=== PATIENT | male | born 1940 | race African-American/Black ===

== ENCOUNTER 2020-11-27 13:44 | Inpatient (IN) | payer MEDICARE, OTHER ==
[2020-11-27] VITALS (12 sets, daily range): BP systolic 73–116; BP diastolic 47–73
[~2020-11-27] VITALS: Ht 167.6 cm; Wt 73.2 kg
[~2020-11-27 13:44] MED LIST: ALBU2.5V8 NEB; AMIO200T6 PO; AMLO-187 PO; APIX5TAB PO; ATOR40TA59 PO; CARV25TA2 PO; CHOL100017 PO; CYAN-9 PO; DOCU100C28 PO; FERR325T14 PO; FURO40TA4 PO; HYDR-2761 PO; HYDR-2869 PO; ISOS40TA11 PO; LISI-130 PO; POTA20TA4 PO; TAMS0.4C97 PO
[2020-11-27] MEDS: MILRINONE 20MG/100ML PREMIX 100 ML IV PRN (16:37)
[2020-11-27] MEDS ORDERED: ALBUTEROL SULFATE 2.5 MG/3 ML NEBU. NEB PRN (17:45)
[2020-11-27] MEDS ORDERED: DOCUSATE SODIUM 100 MG CAPSULE. PO PRN (17:45)
[2020-11-27] MEDS ORDERED: HYDROcodone/APAP 5/325MG 1 TAB TABLET PO PRN (17:45)
[2020-11-27] MEDS ORDERED: FURO40SO5 PO (17:58)
[2020-11-27] MEDS ORDERED: CARV25TA PO (17:58)
[2020-11-27] MEDS ORDERED: ASCO500C9 PO (18:01)
[2020-11-27] MEDS ORDERED: ASPI81TA59 PO (18:02)
[2020-11-27] MEDS: CARVEDILOL 3.125 MG TABLET. PO SCH (18:30)
[2020-11-27] MEDS: ISOSORBIDE DINITRATE 10 MG TABLET. PO SCH (20:52)
--- NOTE | 2020-11-27 21:52 | NUR ---
Notified Dr. Fuchs low BP, 72/54 HR 102. Per Jef Rodriguez hold Milrinone for 1-2 hours if pt is systolic BP <70 or becomes symptomatic. Will continue to monitor patient.
[2020-11-28] VITALS (22 sets, daily range): BP systolic 100–119; BP diastolic 47–63
[2020-11-28 07:50] LABS: BASO % 0 % (0-3); EOS % 1 % (0-3); HEMATOCRIT 27.9 % (39.0-53.0); HEMOGLOBIN 9.1 g/dL (13.0-17.5); LYMPH # 0.2 x10^3/uL (1.0-4.8); LYMPH % 8 % (24-48); MEAN CORPUSCULAR HEMOGLOBIN 31 pg (25-35); MEAN CORPUSCULAR HGB CONC 33 g/dL (31-37); MEAN CORPUSCULAR VOLUME 95 fL (79-100); MONO # 0.3 x10^3/uL (0.0-1.1); MONO % 9 % (0-9); NEUT # 2.4 x10^3/uL (1.8-7.7); NEUT % 82 % (31-73); PLATELET COUNT 118 x10^3/uL (140-400); RED BLOOD COUNT 2.93 x10^6/uL (4.30-5.70); RED CELL DISTRIBUTION WIDTH 17.9 % (11.5-14.5)
[2020-11-28] MEDS: CARVEDILOL 3.125 MG TABLET. PO SCH ×2 (08:00→18:13)
[2020-11-28 08:22] LABS: ALBUMIN 2.2 g/dL (3.4-5.0); ALBUMIN/GLOBULIN RATIO 0.8 (1.0-1.7); CALCIUM 8.2 mg/dL (8.5-10.1); CREATININE 3.7 mg/dL (0.7-1.3); GFR 19.3; POTASSIUM 4.6 mmol/L (3.5-5.1); TOTAL BILIRUBIN 0.5 mg/dL (0.2-1.0); TOTAL PROTEIN 4.9 g/dL (6.4-8.2)
[2020-11-28] MEDS ORDERED: FUROSEMIDE 100 MG/10 ML VIAL. IVP SCH (09:00)
[2020-11-28] MEDS: ISOSORBIDE DINITRATE 10 MG TABLET. PO SCH ×2 (09:00→13:21)
[2020-11-28 10:02] LABS: % BANDS 1 % (0-9); % EOS 2 % (0-5); % LYMPHS 11 % (24-48); % MONOS 1 % (0-10); % SEGS 85 % (35-66)
[2020-11-28 10:04] LABS: HELMET CELLS OCC; PLT ESTIMATE ADEQUATE (ADEQUATE); POIKILOCYTOSIS PRESENT
[2020-11-28 10:05] LABS: BIZZARE CELLS OCC
[2020-11-28 10:32] LABS: BURR CELLS PRESENT
--- NOTE | 2020-11-28 11:14 | PDOC ---
LYNDSAY ZHAO INSURANCE ADVISER 11/28/20 1114: CARDIO Progress Notes Date and Time Date of Service 11/28/20 Time of Evaluation 1100 Subjective Subjective: No Chest Pain, No Palpitations, Other (breathing improved ) Vitals Vitals Vital Signs Date Time Temp Pulse Resp B/P (MAP) Pulse Ox O2 Delivery O2 Flow Rate FiO2 11/28/20 08:00 Nasal Cannula 2.0 11/28/20 07:00 98.0 56 16 116/61 (79) 100 98.0 Weight Weight [ ] Input and Output Intake and Output Intake and Output 11/28/20 07:00 Intake Total 360 ml Output Total 1100 ml Balance -740 ml Intake Oral 360 ml Output Urine Total 1100 ml Laboratory Labs Laboratory Tests Test 11/28/20 06:50 11/28/20 06:56 White Blood Count 3.0 x10^3/uL (4.0-11.0) Red Blood Count 2.93 x10^6/uL (4.30-5.70) Hemoglobin 9.1 g/dL (13.0-17.5) Hematocrit 27.9 % (39.0-53.0) Mean Corpuscular Volume 95 fL (79-100) Mean Corpuscular Hemoglobin 31 pg (25-35) Mean Corpuscular Hemoglobin Concent 33 g/dL (31-37) Red Cell Distribution Width 17.9 % (11.5-14.5) Platelet Count 118 x10^3/uL (140-400) Neutrophils (%) (Auto) 82 % (31-73) Lymphocytes (%) (Auto) 8 % (24-48) Monocytes (%) (Auto) 9 % (0-9) Eosinophils (%) (Auto) 1 % (0-3) Basophils (%) (Auto) 0 % (0-3) Neutrophils # (Auto) 2.4 x10^3/uL (1.8-7.7) Lymphocytes # (Auto) 0.2 x10^3/uL (1.0-4.8) Monocytes # (Auto) 0.3 x10^3/uL (0.0-1.1) Eosinophils # (Auto) 0.0 x10^3/uL (0.0-0.7) Basophils # (Auto) 0.0 x10^3/uL (0.0-0.2) Segmented Neutrophils % 85 % (35-66) Band Neutrophils % 1 % (0-9) Lymphocytes % 11 % (24-48) Monocytes % 1 % (0-10) Eosinophils % 2 % (0-5) Platelet Estimate Adequate (ADEQUATE) Poikilocytosis Present Basophilic Stippling Present Helmet Cells Occ Mounika Cells Present RBC Morphology Bizarre Forms Occ Magnesium Level 2.2 mg/dL (1.8-2.4) Free Thyroxine 1.11 ng/dL (0.76-1.46) Sodium Level 149 mmol/L (136-145) Potassium Level 4.6 mmol/L (3.5-5.1) Chloride Level 116 mmol/L (98-107) Carbon Dioxide Level 24 mmol/L (21-32) Anion Gap 9 (6-14) Blood Urea Nitrogen 59 mg/dL (8-26) Creatinine 3.7 mg/dL (0.7-1.3) Estimated GFR (Cockcroft-Gault) 19.3 BUN/Creatinine Ratio 16 (6-20) Glucose Level 86 mg/dL (70-99) Calcium Level 8.2 mg/dL (8.5-10.1) Total Bilirubin 0.5 mg/dL (0.2-1.0) Aspartate Amino Transf (AST/SGOT) 21 U/L (15-37) Alanine Aminotransferase (ALT/SGPT) 29 U/L (16-63) Alkaline Phosphatase 123 U/L (46-116) Total Protein 4.9 g/dL (6.4-8.2) Albumin 2.2 g/dL (3.4-5.0) Albumin/Globulin Ratio 0.8 (1.0-1.7) Physical Exam Chest: Symmetric LUNGS: Other (diminished bases) Heart: RRR (v-paced ) Abdomen: Soft N/T Extremities: Other (anasarca, 2-3+ bilateral LE edema. Significant scrotal edema ) Neurology: alert, oriented, follow commands Assessment Assessment This is a 80 yo male who initially presented to [facility] secondary to increased LE, scrotal edema and hematuria. Is a resident of [place]. Report LE and scrotal edema for the last couple of months. Has progressively worsened. Associated with dyspnea. Dailey was placed for 24hour collection. Had difficulty placing and hematuria developed. He denies and dizziness, diaphoresis, chest pain, or nausea/vomiting. Has extensive cardiac history as noted below. [facility] not see communication consultant. Labs at [facility] c/w JOSE on CKD with Cr 3.6, acute on chronic systolic CHF, and protein calorie malnutrition. Received 100mg BID of Lasix at [facility]. Was transferred to [facility] for nephrology consultation and fur ther HF evaluation Assessment 1. Acute on chronic respiratory failure; multifactorial with renal failure, CHG, and hypoalbuminemia 2. Acute on chronic diastolic/systolic CHF; s/p IV diuresis. 2. Mixed ischemic, non-ischemic CMP; Echo 11/03 with LVEF 25%. On milrinone 3. CAD s/p PCI/REJI to OM1 (04/2014). clinically stable 4. Type B aortic dissection; s/p transcatheter endovascular aneurysm repair 11/24/19 at [facility] 5. PAFIB; On Amiodarone. 6. SSS s/p leadless PPM; 100% v-paced with underlying AFIB. Not was bradycardia in upper 40's at [facility] 7. Hypertension; low end 8. Hyperlipidemia; statin 9. JOSE on CKD, hyperkalemia; Cr ^ 3.7. Plans for initiation of HD 10. Diabetes, II 11. Leukopenia 12. Hypothyroidism 13. BPH s/p dailey. Hematuria resolved 14. Protein calorie malnutrition, anasarca, significant scrotal edema Recommendations Continue inotropic support with milrinone Monitor I and O. Daily weights Continue coreg for HF optimization Hold ACEi with JOSE Secondary prevention; ASA/statin therapy Device interrogation Resume Eliquis post HD cath placement Follow renal recommendations Supportive care Justicifation of Admission Dx: Justifications for Admission: Justification of Admission Dx: Yes HERVE MARSH MD 11/28/20 1557: CARDIO Progress Notes Plan Plan Patient seen and examined. Agree with above nurse practitioner note. He has persistent 4+ pitting edema up to his thighs. Agree with dialysis. Supportive care. LYNDSAY ZHAO APRN Nov 28, 2020 11:14 HERVE MARSH MD Nov 28, 2020 15:57
--- NOTE | 2020-11-28 11:22 | HP ---
ADMIT DATE: 11/28/2020 HISTORY OF PRESENT ILLNESS: The patient is a 80-year-old -[place] male patient who was at [facility] after he was discharged from [facility] and apparently had marked bilateral lower extremity edema that has worsening as well as scrotal edema and generalized anasarca. He is known to have chronic systolic congestive heart failure as well as chronic kidney disease, likely due to hypertensive nephrosclerosis as well as cardiorenal syndrome. He has also hypoalbuminemia. His chest x-ray was unremarkable. He is actually maintaining his oxygen saturation at 95-96% on room air and while at [facility] we attempted to put a Miguel catheter and to do a 24-hour urine collection to quantify the amount of proteinuria as he likely has severe nephrotic syndrome; however, he developed severe gross hematuria and therefore he was transferred with a plan to send him to [facility]; however, he ended up at the Emergency Room of [facility] where he has had an indwelling Miguel catheter placed and was admitted for further evaluation. While at [facility] his kidney function has noted to be worsening. In fact, his creatinine has risen up to 3.6 and he was seen in consultation by the application integrator and therefore a decision was made to transfer him to [facility] to consult the application integrator and the extension service specialist in charge to do 24-hour urine collection and to start him on milrinone drip as he is known to have chronic systolic congestive heart failure with very poor ejection fraction. PAST MEDICAL HISTORY: Significant for hypertension, hyperlipidemia, chronic atrial fibrillation, congestive heart failure. He has a history of chronic renal disease as well as history of non-ST segment elevation myocardial infarction. He apparently had had a stent placed in his heart and had that done in 2013. At that time ejection fraction was 40%. He has had an echocardiogram done on 11/11, which showed that his systolic function is severely impaired, his ejection fraction was only 25%. Tissue Doppler imaging revealed moderate left ventricular diastolic dysfunction, he has moderate biatrial dilatation, mild aortic regurgitation, moderate mitral regurgitation, [id number] tricuspid regurgitation and estimated pulmonary artery pressure of 64 mmHg. There is a small circumferential pericardial effusion. PAST SURGICAL HISTORY: Significant for bilateral cataract extraction, PTCA and stent deployment and has also a descending thoracic aortic dissection which was treated. Other medical problems include type 2 diabetes mellitus and chronic obstructive pulmonary disease. The patient continues to smoke. FAMILY HISTORY: The patient has 6-step brothers. His father at the age of 68 because of emphysema. His mother at the age of 50 due to congestive heart failure. SOCIAL HISTORY: He is , has 8 children from different marriages. He continues to smoke, he used to drink alcohol heavily, but quit years ago. He also smokes marijuana. He is currently retired from the . He just moved recently from [facility] and lives at [facility] before his most recent admission to [facility]. ALLERGIES: He has no known drug allergies. MEDICATIONS: He was transferred from [facility] to continue on albuterol sulfate 2.5 mg by nebulizer every 4 hours, tamsulosin 0.8 mg at bedtime, ferrous sulfate 325 mg once a day, apixaban 5 mg twice a day, amiodarone 200 mg daily, atorvastatin calcium 40 mg at bedtime, hydralazine 100 mg 3 times a day, isosorbide dinitrate 20 mg twice a day, carvedilol 3.125 mg twice a day, amlodipine besylate 10 mg daily. He was on lisinopril 40 mg daily and aspirin 81 mg once a day. He was on hydrocodone/APAP 5/325 one tablet every 4 hours as needed and potassium chloride 20 mEq once a day, furosemide 40 mg daily, Colace 100 mg once a day, cyanocobalamin 1000 mcg once a day and vitamin C for ascorbic acid 500 mg daily, cholecalciferol for vitamin D3 at 10,000 units once a day. REVIEW OF SYSTEMS: As per history of present illness. PHYSICAL EXAMINATION GENERAL: When I saw him this morning, he was resting slightly propped up in bed, in no apparent distress. Pale, no jaundice, cyanosis or thyromegaly. No jugular venous distention or limb edema. VITAL SIGNS: His heart rate was 56, blood pressure was 116/61, temperature was 98, respiratory rate was 16, and oxygen saturation was 100% on 2 liters of oxygen. HEAD, EYES, EARS, NOSE AND THROAT: Showed normocephalic, atraumatic. NECK: Supple. HEART: Showed normal first and second heart sounds. No gallop, rub or murmur. CHEST: Shows central trachea, equal bilateral expansion, air entry, vesicular sounds. No crepitation or rhonchi. ABDOMEN: Distended, soft, nontender. NEUROLOGIC: He was sleepy, but arousable. All cranial nerves intact. EXTREMITIES: He moves extremities without difficulty. His intake was 360, output was 1100. LABORATORY DATA: As of this morning, his white cell count was 3000, hemoglobin 9, hematocrit 27, MCV 95, and platelet count of 118,000. His serum sodium was 149, potassium 4.6, chloride 116, bicarbonate 24, anion gap of 9, BUN 59, creatinine 3.7, estimated GFR was 19 mL per minute. His glucose was 86, calcium was 8.2, magnesium 2.2. Total bilirubin, AST, ALT were normal. Alkaline phosphatase slightly elevated. Total protein was 4.9, albumin was 2.2. His TSH was high at 8.8; however his free T4 was 1.11, which is well within normal range. ASSESSMENT AND PLAN: In summary, this is a 80-year-old -[place] male patient who was transferred from [facility] with: 1. Acute on chronic kidney injury. His creatinine has risen up to 3.7. 2. Acute on chronic systolic congestive heart failure, ejection fraction 25%. 3. Chronic atrial fibrillation. 4. Coronary artery disease, status post PCI with stent deployment. 5. Hypertension. 6. Hyperlipidemia. 7. Chronic obstructive pulmonary disease. 8. Anemia of chronic kidney disease. 9. Benign prostatic hypertrophy. 10. Type 2 diabetes mellitus. 11. He has also marked generalized anasarca on hypoalbuminemia. Serum albumin is only 2.2 g/dL for which we arranged for him to have a 24-hour urine collection to quantify the amount of protein in the urine and also a creatinine clearance, I have consulted the extension service specialist in charge as well as the application integrator. He was started on a milrinone drip. I did order also Doppler ultrasound of both lower extremities and scrotal ultrasound. MYNOR CHOW MD DR: TOMY/edil JOB#: [id number] / [id number]
--- NOTE | 2020-11-28 11:26 | NUR ---
SS following for discharge planning. SS reviewed pt chart and discussed with pt RN. Pt is from home and is currently requiring oxygen via nasal canula at two liters. Milrinone drip. Per RN, pt will need hemodialysis set up outpatient. Pt to start dialysis tomorrow. Tunneled cath ordered. COVID19 test ordered. Serology labs ordered. Chest x-ray ordered. SS will continue to follow for discharge planning.
--- NOTE | 2020-11-28 11:27 | PDOC2 ---
CONSULT Date of Consult Date of Consult DATE: 11/28/20 TIME: 11:22 Reason for Consult Reason for Consult: RENAL FAILURE Referring Physician Referring Physician: CLAUDINE Identification/Chief Complaint Chief Complaint SOB Source Source: Chart review, Patient History of Present Illness Reason for Visit: THIS IS A 80 YR OLD WITH SOB AND LE EDEMA. HAS CHF. HAS CM WITH EF OF 25%. HAS UNDERLYING CKD WHICH HAS BEEN PROGRESSIVE DUE TO HTN AND DM II AND LATELY DUE TO CARDIO RENAL ISSUES. CR OF 3.7. HE ALSO HAS ANEMIA AND PANCYTOPENIA. NEEDING SUPPLEMENTAL OXYGEN. THIS IS A REPEAT VISIT FOR SIMILAR PROBLEMS. NO OTHER HX. NO NEPHROTOXINS NOTED. Past Medical History Cardiovascular: CAD, CHF, HTN, Hyperlipidemia Pulmonary: COPD GI: Constipation Heme/Onc: Anemia NOS Renal/: Chronic renal insuff Endocrine: Diabetes Past Surgical History Past Surgical History: Other Family History Family History: Hypertension Social History No ALCOHOL: other Drugs: None, Marijuana Lives: Alone Current Medications Current Medications Current Medications Milrinone Lactate/ Dextrose 100 ml @ 2.959 mls/ hr CONT PRN IV SEE I/O RECORD Last administered on 11/27/20at 16:37; Start 11/27/20 at 15:45 Albuterol Sulfate (Ventolin Neb Soln) 2.5 mg PRN Q4HRS PRN NEB SHORTNESS OF BREATH; Start 11/27/20 at 17:45 Atorvastatin Calcium (Lipitor) 40 mg DAILY PO ; Start 11/28/20 at 09:00 Docusate Sodium (Colace) 100 mg PRN BID PRN PO CONSTIPATION; Start 11/27/20 at 17:45 Acetaminophen/ Hydrocodone Bitart (Lortab 5/325) 1 tab PRN Q4HRS PRN PO SEVERE PAIN; Start 11/27/20 at 17:45 Tamsulosin HCl (Flomax) 0.8 mg DAILY PO ; Start 11/28/20 at 09:00 Isosorbide Dinitrate (Isordil) 20 mg BID PO Last administered on 11/27/20at 20:52; Start 11/27/20 at 21:00 Aspirin (Aspirin Chewable) 81 mg DAILY PO ; Start 11/28/20 at 09:00 Carvedilol (Coreg) 3.125 mg BIDWMEALS PO ; Start 11/27/20 at 18:30 Furosemide (Lasix) 100 mg DAILY IVP ; Start 11/28/20 at 09:00; Stop 11/28/20 at 10:26; Status DC Active Scripts Active Hydrocodone-Apap 5-325 (Hydrocodone Bit/Acetaminophen) 1 Tab Tablet 1 Tab PO PRN Q4HRS PRN Amlodipine Besylate 10 Mg Tablet 10 Mg PO DAILY Proair Hfa (Albuterol Sulfate) 8.5 Gm Hfa.aer.ad 2.5 Mg NEB PRN Q4HRS PRN 30 Days Reported Children's Aspirin (Aspirin) 81 Mg Tab.chew 1 Tab PO DAILY 30 Days Vitamin C (Ascorbic Acid) 500 Mg Capsule 500 Mg PO DAILY Furosemide 40 Mg/4 Ml Solution 100 Mg PO DAILY Coreg (Carvedilol) 25 Mg Tablet 3.125 Mg PO BIDWMEALS Amiodarone Hcl 200 Mg Tablet 1 Tab PO DAILY Docusate Sodium 100 Mg Capsule 1 Cap PO BID PRN 7 Days Ferrous Sulfate 325 Mg Tablet 1 Tab PO DAILY Vitamin D (Cholecalciferol (Vitamin D3)) 10,000 Unit Capsule 1 Cap PO DAILY 30 Days Vitamin B-12 (Cyanocobalamin (Vitamin B-12)) 1,000 Mcg Capsule 1 Cap PO DAILY 30 Days Flomax (Tamsulosin Hcl) 0.4 Mg Cap.er.24h 2 Cap PO DAILY Potassium Chloride (Potassium Chloride) 20 Meq Tablet.er 20 Meq PO DAILY Eliquis (Apixaban) 5 Mg Tablet 5 Mg PO BID Atorvastatin Calcium 40 Mg Tablet 1 Tab PO DAILY Isordil (Isosorbide Dinitrate) 40 Mg Tablet 20 Mg PO BID Hydralazine Hcl 50 Mg Tablet 2 Tab PO TID Furosemide 40 Mg Tablet 1 Tab PO DAILY Lisinopril 40 Mg Tablet 1 Tab PO DAILY Allergies Allergies: Coded Allergies: No Known Drug Allergies (Unverified , 11/11/19) ROS General: YES: Fatigue, Malaise PSYCHOLOGICAL ROS: YES: Anxiety Eyes: Yes Decreased vision HEENT: YES: Heacaches Respiratory: YES: Orthopnea, Shortness of breath Cardiovascular: yes Edema Gastrointestinal: Yes Constipation Genitourinary: YES Frequency Musculoskeletal: Yes Muscular Weakness Neurological: Yes Weakness Skin: Yes Dry Skin Physical Exam General: Alert, Oriented X3, Cooperative, mild distress HEENT: Atraumatic, EOMI, Mucous membr. moist/pink Lungs: Other (DECREASED AT BASES) Heart: Regular rate Abdomen: Normal bowel sounds Extremities: No clubbing, No cyanosis Skin: No breakdown Neuro: Normal speech, Cranial nerves 3-12 NL Psych/Mental Status: Mental status NL, Mood NL MUSCULOSKELETAL: No joint tenderness, No deformity, Other (3 EDEMA) Vitals VITALS Vital Signs Date Time Temp Pulse Resp B/P (MAP) Pulse Ox O2 Delivery O2 Flow Rate FiO2 11/28/20 08:00 Nasal Cannula 2.0 11/28/20 07:00 98.0 56 16 116/61 (79) 100 98.0 Labs Labs Laboratory Tests Test 11/28/20 06:50 11/28/20 06:56 White Blood Count 3.0 x10^3/uL (4.0-11.0) Red Blood Count 2.93 x10^6/uL (4.30-5.70) Hemoglobin 9.1 g/dL (13.0-17.5) Hematocrit 27.9 % (39.0-53.0) Mean Corpuscular Volume 95 fL (79-100) Mean Corpuscular Hemoglobin 31 pg (25-35) Mean Corpuscular Hemoglobin Concent 33 g/dL (31-37) Red Cell Distribution Width 17.9 % (11.5-14.5) Platelet Count 118 x10^3/uL (140-400) Neutrophils (%) (Auto) 82 % (31-73) Lymphocytes (%) (Auto) 8 % (24-48) Monocytes (%) (Auto) 9 % (0-9) Eosinophils (%) (Auto) 1 % (0-3) Basophils (%) (Auto) 0 % (0-3) Neutrophils # (Auto) 2.4 x10^3/uL (1.8-7.7) Lymphocytes # (Auto) 0.2 x10^3/uL (1.0-4.8) Monocytes # (Auto) 0.3 x10^3/uL (0.0-1.1) Eosinophils # (Auto) 0.0 x10^3/uL (0.0-0.7) Basophils # (Auto) 0.0 x10^3/uL (0.0-0.2) Segmented Neutrophils % 85 % (35-66) Band Neutrophils % 1 % (0-9) Lymphocytes % 11 % (24-48) Monocytes % 1 % (0-10) Eosinophils % 2 % (0-5) Platelet Estimate Adequate (ADEQUATE) Poikilocytosis Present Basophilic Stippling Present Helmet Cells Occ Mounika Cells Present RBC Morphology Bizarre Forms Occ Magnesium Level 2.2 mg/dL (1.8-2.4) Free Thyroxine 1.11 ng/dL (0.76-1.46) Sodium Level 149 mmol/L (136-145) Potassium Level 4.6 mmol/L (3.5-5.1) Chloride Level 116 mmol/L (98-107) Carbon Dioxide Level 24 mmol/L (21-32) Anion Gap 9 (6-14) Blood Urea Nitrogen 59 mg/dL (8-26) Creatinine 3.7 mg/dL (0.7-1.3) Estimated GFR (Cockcroft-Gault) 19.3 BUN/Creatinine Ratio 16 (6-20) Glucose Level 86 mg/dL (70-99) Calcium Level 8.2 mg/dL (8.5-10.1) Total Bilirubin 0.5 mg/dL (0.2-1.0) Aspartate Amino Transf (AST/SGOT) 21 U/L (15-37) Alanine Aminotransferase (ALT/SGPT) 29 U/L (16-63) Alkaline Phosphatase 123 U/L (46-116) Total Protein 4.9 g/dL (6.4-8.2) Albumin 2.2 g/dL (3.4-5.0) Albumin/Globulin Ratio 0.8 (1.0-1.7) Laboratory Tests Test 11/28/20 06:50 11/28/20 06:56 White Blood Count 3.0 x10^3/uL (4.0-11.0) Red Blood Count 2.93 x10^6/uL (4.30-5.70) Hemoglobin 9.1 g/dL (13.0-17.5) Hematocrit 27.9 % (39.0-53.0) Mean Corpuscular Volume 95 fL (79-100) Mean Corpuscular Hemoglobin 31 pg (25-35) Mean Corpuscular Hemoglobin Concent 33 g/dL (31-37) Red Cell Distribution Width 17.9 % (11.5-14.5) Platelet Count 118 x10^3/uL (140-400) Neutrophils (%) (Auto) 82 % (31-73) Lymphocytes (%) (Auto) 8 % (24-48) Monocytes (%) (Auto) 9 % (0-9) Eosinophils (%) (Auto) 1 % (0-3) Basophils (%) (Auto) 0 % (0-3) Neutrophils # (Auto) 2.4 x10^3/uL (1.8-7.7) Lymphocytes # (Auto) 0.2 x10^3/uL (1.0-4.8) Monocytes # (Auto) 0.3 x10^3/uL (0.0-1.1) Eosinophils # (Auto) 0.0 x10^3/uL (0.0-0.7) Basophils # (Auto) 0.0 x10^3/uL (0.0-0.2) Segmented Neutrophils % 85 % (35-66) Band Neutrophils % 1 % (0-9) Lymphocytes % 11 % (24-48) Monocytes % 1 % (0-10) Eosinophils % 2 % (0-5) Platelet Estimate Adequate (ADEQUATE) Poikilocytosis Present Basophilic Stippling Present Helmet Cells Occ [place] Cells Present RBC Morphology Bizarre Forms Occ Magnesium Level 2.2 mg/dL (1.8-2.4) Free Thyroxine 1.11 ng/dL (0.76-1.46) Sodium Level 149 mmol/L (136-145) Potassium Level 4.6 mmol/L (3.5-5.1) Chloride Level 116 mmol/L (98-107) Carbon Dioxide Level 24 mmol/L (21-32) Anion Gap 9 (6-14) Blood Urea Nitrogen 59 mg/dL (8-26) Creatinine 3.7 mg/dL (0.7-1.3) Estimated GFR (Cockcroft-Gault) 19.3 BUN/Creatinine Ratio 16 (6-20) Glucose Level 86 mg/dL (70-99) Calcium Level 8.2 mg/dL (8.5-10.1) Total Bilirubin 0.5 mg/dL (0.2-1.0) Aspartate Amino Transf (AST/SGOT) 21 U/L (15-37) Alanine Aminotransferase (ALT/SGPT) 29 U/L (16-63) Alkaline Phosphatase 123 U/L (46-116) Total Protein 4.9 g/dL (6.4-8.2) Albumin 2.2 g/dL (3.4-5.0) Albumin/Globulin Ratio 0.8 (1.0-1.7) Assessment/Plan Assessment/Plan IMP JOSE VS NEW ESRD CKD STAGE 4 WITH CR OF 2.9 RECENTLY CHF SYSTOLIC WITH CM AND EF OF 25% VALVULAR HEART DISEASE DYSPNEA DM II HTN ANEMIA PANCYTOPENIA PLAN MILRINONE DIURESIS TOLERATED NEEDS TO START DIALYSIS WILL HAVE IR PLACE TUNNELED LINE HD TO START TOMORROW CHECK PO4, IRON START ARANESP PT AGREEABLE D/W BECKA DOZIER MD Nov 28, 2020 11:27
[2020-11-28] MEDS: ASPIRIN CHEWABLE 81 MG TABLET. PO SCH (13:44)
[2020-11-28] MEDS: TAMSULOSIN 0.4 MG CAP.ER.24H. PO SCH (13:45)
[2020-11-28] MEDS: ATORVASTATIN CALCIUM 40 MG TABLET. PO SCH (13:45)
--- NOTE | 2020-11-28 16:34 | RAD ---
US BILATERAL LOWEREXTREMITY VENOUS DOPPLER History: Reason: EDEMA / Spl. Instructions: / History: Comparison: None. Discussion: Multiple longitudinal and transverse high resolution real-time images of the venous system of bilater al lower extremity were obtained with color and Doppler sampling. The common femoral, superficial fem oral, popliteal and proximal calf veins are all patent and demonstrate normal flow and compressibilit y. Normal respiratory phasicity and augmentation is present. Extensive bilateral lower extremity subc utaneous edema. Impression: 1. No evidence of deep vein thrombosis. 2. Bilateral lower extremity subcutaneous edema. Electronically signed by: Vishal Nguyen DO (11/28/2020 4:32 PM) [facility]
--- NOTE | 2020-11-28 16:36 | RAD ---
US TESTICULAR History: Reason: swelling / Spl. Instructions: / History: Comparison: None. Technique: Multiple grayscale, color flow Doppler and Doppler spectral analysis images of the scrotum are obtained. Findings: Right testicle measures 3.0 x 2.3 x 2.2 cm. Right testicle demonstrates normal parenchymal echogenic ity. The right epididymis is unremarkable. Left testicle measures 2.9 x 2.2 x 2.4 cm. Left testicle demonstrates normal parenchymal echogenici ty. The left epididymis is unremarkable. Small bilateral hydroceles. Severe scrotal edema with skin thickening. Doppler imaging demonstrates normal flow to both testicles, without evidence of torsion. IMPRESSION: 1. Severe scrotal edema with skin thickening. 2. Small bilateral hydroceles. Electronically signed by: Vishal Nguyen DO (11/28/2020 4:33 PM) [facility]
--- NOTE | 2020-11-28 17:25 | RAD ---
EXAM: XR CHEST 1V INDICATION: Reason: chf, / Spl. Instructions: / History: . TECHNIQUE: Single view COMPARISON: 11/13/2020 chest x-ray FINDINGS: The heart size is markedly enlarged, similar to prior. The great vessels again show surgical changes from aortic stent graft from the aortic arch through th e distal descending thoracic aorta. There is no hilar or mediastinal mass. Lungs show platelike atelectasis in the bilateral upper lobes and ill-defined haziness of the lung ba ses, more conspicuous in the interval. These likely reflect some degree of bibasilar atelectasis. There is no pneumothorax but blunting of the bilateral costophrenic angles and haziness is present arauz ggesting small bilateral pleural effusions that may be new on the left. There are no significant osseous abnormalities. IMPRESSION: Marked cardiomegaly and developing bilateral pleural effusions status post descending thoracic aortic stent graft. Electronically signed by: Nereyda Lea MD (11/28/2020 5:22 PM) [id number]
[2020-11-28] MEDS: MILRINONE 20MG/100ML PREMIX 100 ML IV PRN (18:14)
[2020-11-28 19:10] LABS: THYROXINE 6.8 ug/dL (4.5-12.0)
[2020-11-28] MEDS ORDERED: DARBEPOETIN ALFA 60 MCG/0.3 ML DISP.SYRIN. SQ SCH (21:00)
[2020-11-29] VITALS (13 sets, daily range): BP systolic 90–137; BP diastolic 50–75
[2020-11-29 06:04] LABS: CALCIUM 8.2 mg/dL (8.5-10.1); CREATININE 3.6 mg/dL (0.7-1.3); GFR 19.9; PHOSPHORUS 3.1 mg/dL (2.6-4.7); POTASSIUM 4.1 mmol/L (3.5-5.1)
[2020-11-29 06:57] LABS: HEMATOCRIT 26.5 % (39.0-53.0); HEMOGLOBIN 8.8 g/dL (13.0-17.5); RED BLOOD COUNT 2.82 x10^6/uL (4.30-5.70); RED CELL DISTRIBUTION WIDTH 17.1 % (11.5-14.5); WHITE BLOOD COUNT 2.5 x10^3/uL (4.0-11.0)
[2020-11-29] MEDS: CARVEDILOL 3.125 MG TABLET. PO SCH ×2 (08:00→17:40)
[2020-11-29 08:37] LABS: PROTHROMBIN TIME PATIENT 15.5 SEC (11.7-14.0)
[2020-11-29] MEDS: ISOSORBIDE DINITRATE 10 MG TABLET. PO SCH ×2 (09:00→22:10)
--- NOTE | 2020-11-29 09:40 | PN ---
DATE: 11/29/2020 SUBJECTIVE: The patient is resting, slightly propped up in bed, in no apparent respiratory distress. He is awake, alert. On questioning him, he denied any complaint. The nursing staff did not voice any concern and stated that he has generally uneventful night. The 24-hour urine collection was completed yesterday; however, the results are still pending. He has had a venous Doppler ultrasound of both lower extremities, which showed no evidence of deep vein thrombosis; however, he has bilateral lower extremity subcutaneous edema. He has also abdominal and scrotal ultrasound, which basically showed severe scrotal edema with skin thickening and small bilateral hydroceles. The patient is scheduled for a tunneled hemodialysis catheter placement to start hemodialysis. PHYSICAL EXAMINATION: GENERAL: When I saw him, he was somewhat pale, but no jaundice or cyanosis. No lymphadenopathy, no thyromegaly. No jugular venous distention, but generalized anasarca. VITAL SIGNS: His heart rate was 50, blood pressure was 123/57, temperature 98.8, respiratory rate was 18, and oxygen saturation was 100% on 5 liters of oxygen. HEAD, EYES, EARS, NOSE AND THROAT: Showed normocephalic, atraumatic. NECK: Supple. HEART: Normal first and second heart sounds. No gallop, rub or murmur. CHEST: Clear to auscultation. No crepitation or rhonchi. ABDOMEN: Distended, soft, nontender. NEUROLOGIC: He is awake, alert, responding appropriately. All cranial nerves are intact. He moves all extremities without difficulty. He has generalized anasarca. He has an indwelling Miguel catheter. His intake was 360, output was 1100. LABORATORY DATA: As of this morning, his white cell count is 2500, hemoglobin 8.8, hematocrit 26.5, MCV 94 and platelet count of 126,000. His chemistry showed a serum sodium 147, potassium 4.1, chloride 114, bicarbonate 24, anion gap of 9, BUN 58, creatinine 3.6, estimated GFR was 19.9 mL per minute. His glucose was 88, calcium was 8.2, phosphorus was 3.1, magnesium 2.2. His serum iron is 38, TIBC was 155 and iron saturation was 25%. ASSESSMENT AND PLAN: 1. Acute on chronic kidney injury. His creatinine today is 3.6 mg/dL. 2. Acute on chronic systolic congestive heart failure, ejection fraction 25%, ischemic cardiomyopathy with an ejection fraction of only 25%. 3. Chronic atrial fibrillation. 4. Coronary artery disease, status post percutaneous coronary intervention with stent deployment. 5. Hypertension. 6. Hyperlipidemia. 7. Chronic obstructive pulmonary disease. 8. Anemia of chronic kidney disease. 9. Benign prostatic hypertrophy. 10. Type 2 diabetes mellitus. 11. The patient has generalized anasarca and marked hypoalbuminemia, likely due to nephrotic syndrome. We did a 24-hour urine collection to quantify the proteinuria and also creatinine clearance, the result of which is still pending at the time of this dictation. 12. The patient is scheduled for a tunneled hemodialysis catheter and to start hemodialysis today. MYNOR CHOW MD DR: TOMY/edil JOB#: [id number] / [id number]
[2020-11-29] MEDS ORDERED: MIDAZOLAM HCL/PF 2 MG/2 ML VIAL. ONE (11:02)
[2020-11-29] MEDS ORDERED: fentaNYL PF VIAL 100 MCG/2 ML VIAL ONE (11:03)
[2020-11-29] MEDS ORDERED: LIDOCAINE 2%/EPI 1:100,000 20 ML VIAL. ONE (11:03)
[2020-11-29] MEDS ORDERED: LIDOCAINE 2%/EPI 1:100,000 20 ML VIAL. IJ ONE (11:30)
[2020-11-29] MEDS ORDERED: fentaNYL PF VIAL 100 MCG/2 ML VIAL IV ONE (11:30)
[2020-11-29] MEDS ORDERED: MIDAZOLAM HCL/PF 2 MG/2 ML VIAL. IV ONE (11:30)
--- NOTE | 2020-11-29 12:30 | PDOC ---
MODERATE SEDATION ASSESSMENT RISKS/ALTERNATIVES Risks/Alternatives Risks and alternatives of this type of sedation and procedure discussed with: RISK/ALTERNATIVES: Patient H & P ON CHART H & P H & P on chart and reviewed for co-morbid conditions and appropriate labs. H&P ON CHART: Yes STATUS PREG STATUS ASSESSED: Yes MEDS/ALLERGIES REVIEWED Meds/Allergies Reviewed Medications and Allergies including time and route of recently administered narcotics and sedatives. MEDS/ALLERGIES REVIEWED: Yes ASA RATING ASA RATING: II AIRWAY ASSESSMENT Airway Assessment Airway patency, oral function limitations, presence of caps, crowns, dentures, partials, and ability to extend neck assessed. AIRWAY ASSESSMENT: Yes MALLAMPATI SCORE MALLAMPATI SCORE: II PRE-SEDATION ASSESSMENT PRE-SEDATION ASSESSMENT: Yes KENAN RAMSEY MD Nov 29, 2020 12:29
--- NOTE | 2020-11-29 12:30 | PDOC ---
BRIEF OPERATIVE NOTE Pre-Op Diagnosis CRF Post-Op Diagnosis same Procedure Performed Tunnelled HD catheter Surgeon Zaria HAYES minimal Anesthesia Type: Conscious Sedation Specimens Obtained none Findings Right IJ Tunnelled HD catheter with excellent manual flows suitable for use Complications no immediate KENAN RAMSEY MD Nov 29, 2020 12:30
--- NOTE | 2020-11-29 12:57 | PDOC ---
Renal-Progress Notes Subjective Notes Notes NO NEW COMPLAINTS. STILL SOB AND HAS LE EDEMA History of Present Illness Hx of present illness STABLE Vitals Vitals Vital Signs Date Time Temp Pulse Resp B/P (MAP) Pulse Ox O2 Delivery O2 Flow Rate FiO2 11/29/20 12:36 18 95 Nasal Cannula 5.0 11/29/20 12:30 56 11/29/20 11:00 97.9 119/58 (78) 97.9 Weight Weight [ ] I.O. Intake and Output Intake and Output 11/29/20 07:00 Intake Total 290 ml Output Total 1500 ml Balance -1210 ml Intake Oral 290 ml Output Urine Total 1500 ml Labs Labs Laboratory Tests Test 11/29/20 05:00 11/29/20 07:55 11/29/20 08:20 White Blood Count 2.5 x10^3/uL (4.0-11.0) Red Blood Count 2.82 x10^6/uL (4.30-5.70) Hemoglobin 8.8 g/dL (13.0-17.5) Hematocrit 26.5 % (39.0-53.0) Mean Corpuscular Volume 94 fL (79-100) Mean Corpuscular Hemoglobin 31 pg (25-35) Mean Corpuscular Hemoglobin Concent 33 g/dL (31-37) Red Cell Distribution Width 17.1 % (11.5-14.5) Platelet Count 126 x10^3/uL (140-400) Sodium Level 147 mmol/L (136-145) Potassium Level 4.1 mmol/L (3.5-5.1) Chloride Level 114 mmol/L (98-107) Carbon Dioxide Level 24 mmol/L (21-32) Anion Gap 9 (6-14) Blood Urea Nitrogen 58 mg/dL (8-26) Creatinine 3.6 mg/dL (0.7-1.3) Estimated GFR (Cockcroft-Gault) 19.9 Glucose Level 88 mg/dL (70-99) Calcium Level 8.2 mg/dL (8.5-10.1) Phosphorus Level 3.1 mg/dL (2.6-4.7) Iron Level 38 ug/dL (65-175) Total Iron Binding Capacity 155 ug/dL (250-450) Iron Saturation 25 % (15-34) Prothrombin Time 15.5 SEC (11.7-14.0) Prothromb Time International Ratio 1.3 (0.8-1.1) SARS-CoV-2 Antigen (Rapid) Negative (NEGATIVE) Review of Systems Constitutional: yes: weakness, alert, oriented Ears/Nose/Throat: Yes: no symptom reported Eyes: Yes: no symptom reported Pulmonary: Yes dyspnea Cardiovascular: Yes edema Gastrointestional: Yes: no symptom reported Genitourinary: Yes: no symptom reported Skin: Yes no symptom reported Psychiatric/Neurological: Yes: no symptom reported Physical Exam General Appearance: no apparent distress Skin: warm Respiratory: decreased breath sounds Heart: S1S2 Abdomen: soft, bowel sounds present Genitourinary: bladder flat Extremities: edema Neurology: alert, oriented, follow commands Assessment Assessment MP NEW ESRD CHF SYSTOLIC WITH CM AND EF OF 25% VALVULAR HEART DISEASE DYSPNEA DM II HTN ANEMIA PANCYTOPENIA PLAN MILRINONE DIURESIS TOLERATED TUNNELED HD LINE TODAY HD TODAY UF 2.5-3.0 TOLERATED STARTED [facility] WILL ASK SW TO SET UP OP HD IN [place] BECKA RUIZ MD Nov 29, 2020 12:57
[2020-11-29] MEDS ORDERED: IV NORMAL SALINE 1000ML BAG 1,000 ML IV PRN ×2 (13:00)
[2020-11-29] MEDS ORDERED: ALBUMIN HUMAN 25% 200 ML IV PRN (13:00)
[2020-11-29] MEDS ORDERED: DIALYSIS PATIENT. MC PRN ×2 (13:00)
--- NOTE | 2020-11-29 13:28 | RAD ---
Procedure: Tunneled hemodialysis catheter placement Clinical Indication: Adult male requiring hemodialysis Sedation: Conscious sedation was administered for 17 minutes. The patient was monitored by a qualified independent observer throughout the time of sedation. Please refer to the medical record for exact doses of medications utilized to achieve moderate sedation. Antibiotics: Antibiotic was administered intravenously within 1 hour of the procedure start time. Fluoro Time: Less than 1 minute, images: 1 Contrast: None Sterility: All elements of maximal sterile barrier technique including the use of a cap, mask, sterile gown, sterile gloves, large sterile sheet, appropriate hand hygiene, and 2% chlorhexidine for cutaneous antisepsis (or acceptable alternative antiseptic per current guidelines) were followed for this procedure. Consent: The procedure was explained in its entirety to the patient or the patients designated sales representative business courses by a member of the treatment team, including a discussion of the risks, benefits and commonly accepted alternatives to the procedure, as well as the expected consequences of no therapy whatsoever. Discussion of the risks included, but was not limited to, those that are most frequent and those that are rare but possibly severe or life-threatening, as well as the possibility of unforeseen complications. Technique and Findings: Following informed consent, the patient was prepped and draped in the usual sterile fashion. Ultrasound interrogation of the right neck revealed patency and compressibility of the right internal jugular vein. A 21-gauge micropuncture was then used to gain access to this vein under ultrasound guidance. A hard copy ultrasound image was recorded. The needle was exchanged over a wire for a 4 Israeli sheath which was used to guide an Amplatz wire into the IVC. The skin over the right anterior chest wall was copiously anesthetized with 1% Lidocaine plus Epinephrine and a small dermatotomy was made. A 23 cm palindrome tunneled hemodialysis catheter was then tunneled subcutaneously towards the neck dermatotomy and deployed through a large caliber peel-away sheath under fluoroscopic guidance such that the distal tip resided in the mid right atrium. Manual flow rates were assessed and found to be excellent. The catheter was then flushed, packed with Heparin, capped, and sutured to the skin. The neck dermatotomy was closed with Dermabond. Complications: No immediate Impression: 1. Tunneled hemodialysis catheter placement as described. This catheter demonstrates excellent manual flow rates and is suitable for use immediately.
--- NOTE | 2020-11-29 14:27 | NUR ---
SS following up with discharge planning. SS reviewed pt chart and discussed with pt RN. SS notified that pt is skilled rehabilitation resident from [facility], ; fax [phone]. COVID19 negative. Pt needing PT/OT evaluations prior to returning. PT/OT ordered. Pt is currently requiring oxygen. Pt having first dialysis treatment today. New ESRD. Pt requesting outpatient dialysis set up in [place], [place]. SS phoned and faxed referral to dialysis to [facility], ; fax [phone]. SS phoned and faxed clinical updates to [facility], ; fax [phone]. SS will continue to follow for discharge planning.
--- NOTE | 2020-11-29 14:32 | PDOC ---
NARINDER HARDY EMPLOYMENT SPECIALIST/PROGRAM MANAGER 11/29/20 1432: CARDIO Progress Notes Date and Time Date of Service 11/29/2020 Time of Evaluation 1040 Subjective Subjective: No shortness of breath, Other (post sedation seen in vascular lab) Vitals Vitals Vital Signs Date Time Temp Pulse Resp B/P (MAP) Pulse Ox O2 Delivery O2 Flow Rate FiO2 11/29/20 12:36 18 95 Nasal Cannula 5.0 11/29/20 12:30 56 11/29/20 11:00 97.9 119/58 (78) 97.9 Weight Weight [ ] Input and Output Intake and Output Intake and Output 11/29/20 07:00 Intake Total 290 ml Output Total 1500 ml Balance -1210 ml Intake Oral 290 ml Output Urine Total 1500 ml Laboratory Labs Laboratory Tests Test 11/29/20 05:00 11/29/20 07:55 11/29/20 08:20 White Blood Count 2.5 x10^3/uL (4.0-11.0) Red Blood Count 2.82 x10^6/uL (4.30-5.70) Hemoglobin 8.8 g/dL (13.0-17.5) Hematocrit 26.5 % (39.0-53.0) Mean Corpuscular Volume 94 fL (79-100) Mean Corpuscular Hemoglobin 31 pg (25-35) Mean Corpuscular Hemoglobin Concent 33 g/dL (31-37) Red Cell Distribution Width 17.1 % (11.5-14.5) Platelet Count 126 x10^3/uL (140-400) Sodium Level 147 mmol/L (136-145) Potassium Level 4.1 mmol/L (3.5-5.1) Chloride Level 114 mmol/L (98-107) Carbon Dioxide Level 24 mmol/L (21-32) Anion Gap 9 (6-14) Blood Urea Nitrogen 58 mg/dL (8-26) Creatinine 3.6 mg/dL (0.7-1.3) Estimated GFR (Cockcroft-Gault) 19.9 Glucose Level 88 mg/dL (70-99) Calcium Level 8.2 mg/dL (8.5-10.1) Phosphorus Level 3.1 mg/dL (2.6-4.7) Iron Level 38 ug/dL (65-175) Total Iron Binding Capacity 155 ug/dL (250-450) Iron Saturation 25 % (15-34) Prothrombin Time 15.5 SEC (11.7-14.0) Prothromb Time International Ratio 1.3 (0.8-1.1) SARS-CoV-2 Antigen (Rapid) Negative (NEGATIVE) Review of Systems Constitutional: yes: weakness, alert, oriented Ears/Nose/Throat: Yes: no symptom reported Eyes: Yes: no symptom reported Pulmonary: Yes dyspnea Cardiovascular: Yes edema Gastrointestional: Yes: no symptom reported Genitourinary: Yes: no symptom reported Skin: Yes no symptom reported Psychiatric/Neurological: Yes: no symptom reported Physical Exam HEENT: Neck Supple W Full Motion Chest: Symmetric LUNGS: Other (diminished bases) Heart: RRR (v-paced ) Abdomen: Other (obese) Extremities: Other (Anasarca) Neurology: other (post sedation S/P HD cath placement) Assessment Assessment 1. Acute on chronic respiratory failure; multifactorial with renal failure, CHG, and hypoalbuminemia 2. Acute on chronic diastolic/systolic CHF: SOA better 2. Mixed ischemic, non-ischemic CMP; Echo 11/03 with LVEF 25%. 3. CAD s/p PCI/REJI to OM1 (04/2014). clinically stable 4. Type B aortic dissection; s/p transcatheter endovascular aneurysm repair 11/24/19 at [facility] 5. PAFIB; On Amiodarone. 6. SSS s/p leadless PPM; 100% v-paced with underlying AFIB. Not was bradycardia in upper 40's at [facility] 7. Hypertension; controlled 8. Hyperlipidemia; statin 9. JOSE on CKD, hyperkalemia; HD to commence 10. Diabetes, II 11. Leukopenia 12. Hypothyroidism 13. BPH s/p dailey. Hematuria resolved 14. Protein calorie malnutrition, anasarca, significant scrotal edema 15. Anemia of chronic disease Recommendations DC milrinone. HD to commence today. Restart eliquis tonight Continue coreg for HF optimization. Reeval other BP med use per BP trend. Continue amiodarone for rhythm maintenance. Hold ACEi for now Secondary prevention; ASA/statin therapy Resume Eliquis post HD cath placement Follow renal recommendations Unclear intention as far as AICD, pt presently has micra, further discussion in regards to conversion as an outpt Justicifation of Admission Dx: Justifications for Admission: Justification of Admission Dx: Yes HERVE MARSH MD 11/29/20 2336: CARDIO Progress Notes Plan Plan Pt. seen and examined. Agree with above BODY TECHNICIAN note Continue HD and fluid removal. Will f/u in 48 hours and reassess HF regimen. Needs palliative care consultation. NARINDER HARDY APRN Nov 29, 2020 14:32 HERVE MARSH MD Nov 29, 2020 23:36
[2020-11-29] MEDS: FUROSEMIDE 40 MG TABLET. PO SCH (17:39)
[2020-11-29] MEDS: ASPIRIN CHEWABLE 81 MG TABLET. PO SCH (17:40)
[2020-11-29] MEDS: TAMSULOSIN 0.4 MG CAP.ER.24H. PO SCH (17:40)
[2020-11-29] MEDS: ATORVASTATIN CALCIUM 40 MG TABLET. PO SCH (17:40)
[2020-11-29 20:11] LABS: CREATININE, UR 86.2 mg/dL (Not Estab.)
[2020-11-29] MEDS: APIXABAN 5 MG TABLET. PO SCH (22:10)
[2020-11-30 03:35] VITALS: BP 122/56
[2020-11-30 07:00] VITALS: BP 119/67
[2020-11-30] MEDS: CARVEDILOL 3.125 MG TABLET. PO SCH ×2 (08:00→17:37)
[2020-11-30 08:18] LABS: CALCIUM 8.4 mg/dL (8.5-10.1); CREATININE 2.6 mg/dL (0.7-1.3); MAGNESIUM 2.2 mg/dL (1.8-2.4); PHOSPHORUS 2.8 mg/dL (2.6-4.7); POTASSIUM 4.1 mmol/L (3.5-5.1)
--- NOTE | 2020-11-30 08:54 | PN ---
DATE: 11/30/2020 SUBJECTIVE: The patient is resting, slightly propped up in bed, in no apparent respiratory distress. He is awake and alert. On questioning him, he denied any complaint. He apparently has had his tunneled hemodialysis catheter placed successfully and his milrinone drip was discontinued and was apparently dialyzed. PHYSICAL EXAMINATION: GENERAL: When I saw him this morning, he was somewhat pale. Not jaundiced or cyanosed. No lymphadenopathy. No thyromegaly. No jugular venous distention, but generalized anasarca. VITAL SIGNS: His heart rate was 54, blood pressure was 122/56, temperature 97.4, respiratory rate was 18 and oxygen saturation was 98% on 2.5 liters of oxygen. HEAD, EYES, EARS, NOSE, AND THROAT: Showed normocephalic, atraumatic. NECK: Supple. HEART: Normal first and second heart sounds. No gallop or murmur. CHEST: Shows central trachea, equal bilateral chest expansion, air entry, vesicular sounds. I could not really appreciate any crepitation or rhonchi. He has a tunneled hemodialysis catheter to the right internal jugular vein. ABDOMEN: Scaphoid, soft, nontender. NEUROLOGIC: He is grossly intact. His intake over the last 24 hours was 290, output was 1500. No lab works done this morning. His COVID-19 was negative and his 24-hour urine creatinine was 819. However, the urine protein is still pending at the time of this dictation. ASSESSMENT: 1. Acute on chronic kidney injury. The patient is deemed to have end-stage renal disease and now has tunneled hemodialysis catheter placed successfully yesterday. 2. Acute on chronic systolic congestive heart failure with an ejection fraction of 25%. 3. Ischemic cardiomyopathy. 4. Chronic atrial fibrillation, rate controlled, well anticoagulated. 5. Coronary artery disease, status post percutaneous coronary intervention with stent deployment. 6. Hypertension. 7. Hyperlipidemia. 8. Chronic obstructive pulmonary disease. 9. Anemia of chronic kidney disease. 10. Benign prostatic hypertrophy. 11. Type 2 diabetes mellitus. 12. The patient has generalized anasarca and marked hypoalbuminemia, likely due to nephrotic syndrome. We did a 24-hour urine collection to quantify the proteinuria; the result of which is still pending. PLAN: Is to continue with hemodialysis as per Nephrology team. His milrinone was discontinued. He is now back on apixaban. I will consult Physical and Occupational Therapy also. MYNOR CHOW MD DR: TOMY/edil JOB#: [id number] / [id number]
[2020-11-30] MEDS: ISOSORBIDE DINITRATE 10 MG TABLET. PO SCH ×2 (09:00→21:05)
[2020-11-30] MEDS ORDERED: DIALYSIS PATIENT. MC PRN (12:45)
[2020-11-30] MEDS: FUROSEMIDE 40 MG TABLET. PO SCH ×2 (14:00→14:49)
--- NOTE | 2020-11-30 14:21 | PDOC ---
PROGRESS NOTES Date of Service DATE: 11/30/20 TIME: 14:20 Subjective Subjective SEEN IN FOLLOW UP OF NEW ESRD Objective Objective Vital Signs Date Time Temp Pulse Resp B/P (MAP) Pulse Ox O2 Delivery O2 Flow Rate FiO2 11/30/20 09:00 49 119/67 11/30/20 08:00 Nasal Cannula 2.5 11/30/20 07:23 99 11/30/20 07:00 97.8 18 97.8 Intake and Output 11/30/20 07:00 Intake Total 490 ml Output Total 1675 ml Balance -1185 ml Intake Oral 490 ml Output Urine Total 1675 ml Physical Exam Abdomen: Normal bowel sounds, Soft, No tenderness, No hepatosplenomegaly, No masses Heart: Regular rate, Normal S1, Normal S2, No murmurs, Gallops General: Alert, Oriented X3, Cooperative, No acute distress Lungs: Clear to auscultation, Normal air movement Psych/Mental Status: Mental status NL, Mood NL Diagnosis RENAL FAILURE: ESRD Plan Plan of Care FOR DIALYSIS TODAY. EPOGEN PER HGB Comment Review of Relevant I have reviewed the following items estella (where applicable) has been applied. Labs Laboratory Tests Test 11/28/20 18:45 11/29/20 05:00 11/29/20 07:55 11/29/20 08:20 Urine Creatinine 24 Hour 86.2 mg/dL (Not Estab.) Urine Creatinine mg/24 hr 819 mg/24 hr (0010-1862) White Blood Count 2.5 x10^3/uL (4.0-11.0) Red Blood Count 2.82 x10^6/uL (4.30-5.70) Hemoglobin 8.8 g/dL (13.0-17.5) Hematocrit 26.5 % (39.0-53.0) Mean Corpuscular Volume 94 fL (79-100) Mean Corpuscular Hemoglobin 31 pg (25-35) Mean Corpuscular Hemoglobin Concent 33 g/dL (31-37) Red Cell Distribution Width 17.1 % (11.5-14.5) Platelet Count 126 x10^3/uL (140-400) Sodium Level 147 mmol/L (136-145) Potassium Level 4.1 mmol/L (3.5-5.1) Chloride Level 114 mmol/L (98-107) Carbon Dioxide Level 24 mmol/L (21-32) Anion Gap 9 (6-14) Blood Urea Nitrogen 58 mg/dL (8-26) Creatinine 3.6 mg/dL (0.7-1.3) Estimated GFR (Cockcroft-Gault) 19.9 Glucose Level 88 mg/dL (70-99) Calcium Level 8.2 mg/dL (8.5-10.1) Phosphorus Level 3.1 mg/dL (2.6-4.7) Iron Level 38 ug/dL (65-175) Total Iron Binding Capacity 155 ug/dL (250-450) Iron Saturation 25 % (15-34) Prothrombin Time 15.5 SEC (11.7-14.0) Prothromb Time International Ratio 1.3 (0.8-1.1) SARS-CoV-2 Antigen (Rapid) Negative (NEGATIVE) Test 11/30/20 06:33 Sodium Level 146 mmol/L (136-145) Potassium Level 4.1 mmol/L (3.5-5.1) Chloride Level 111 mmol/L (98-107) Carbon Dioxide Level 29 mmol/L (21-32) Anion Gap 6 (6-14) Blood Urea Nitrogen 39 mg/dL (8-26) Creatinine 2.6 mg/dL (0.7-1.3) Estimated GFR (Cockcroft-Gault) 29.0 Glucose Level 99 mg/dL (70-99) Calcium Level 8.4 mg/dL (8.5-10.1) Phosphorus Level 2.8 mg/dL (2.6-4.7) Magnesium Level 2.2 mg/dL (1.8-2.4) Laboratory Tests Test 11/30/20 06:33 Sodium Level 146 mmol/L (136-145) Potassium Level 4.1 mmol/L (3.5-5.1) Chloride Level 111 mmol/L (98-107) Carbon Dioxide Level 29 mmol/L (21-32) Anion Gap 6 (6-14) Blood Urea Nitrogen 39 mg/dL (8-26) Creatinine 2.6 mg/dL (0.7-1.3) Estimated GFR (Cockcroft-Gault) 29.0 Glucose Level 99 mg/dL (70-99) Calcium Level 8.4 mg/dL (8.5-10.1) Phosphorus Level 2.8 mg/dL (2.6-4.7) Magnesium Level 2.2 mg/dL (1.8-2.4) Medications Current Medications Milrinone Lactate/ Dextrose 100 ml @ 2.959 mls/ hr CONT PRN IV SEE I/O RECORD Last administered on 11/28/20at 18:14; Start 11/27/20 at 15:45; Stop 11/29/20 at 12:23; Status DC Albuterol Sulfate (Ventolin Neb Soln) 2.5 mg PRN Q4HRS PRN NEB SHORTNESS OF BREATH; Start 11/27/20 at 17:45 Atorvastatin Calcium (Lipitor) 40 mg DAILY PO Last administered on 11/29/20at 17:40; Start 11/28/20 at 09:00 Docusate Sodium (Colace) 100 mg PRN BID PRN PO CONSTIPATION; Start 11/27/20 at 17:45 Acetaminophen/ Hydrocodone Bitart (Lortab 5/325) 1 tab PRN Q4HRS PRN PO SEVERE PAIN Last administered on 11/29/20at 22:09; Start 11/27/20 at 17:45 Tamsulosin HCl (Flomax) 0.8 mg DAILY PO Last administered on 11/29/20at 17:40; Start 11/28/20 at 09:00 Isosorbide Dinitrate (Isordil) 20 mg BID PO Last administered on 11/29/20at 22:10; Start 11/27/20 at 21:00 Aspirin (Aspirin Chewable) 81 mg DAILY PO Last administered on 11/29/20at 17:40; Start 11/28/20 at 09:00 Carvedilol (Coreg) 3.125 mg BIDWMEALS PO Last administered on 11/29/20at 17:40; Start 11/27/20 at 18:30 Furosemide (Lasix) 100 mg DAILY IVP ; Start 11/28/20 at 09:00; Stop 11/28/20 at 10:26; Status DC Darbepoetin Dante (ARANESP for DIALYSIS PTS) 60 mcg We SQ Last administered on 11/28/20at 21:18; Start 11/28/20 at 21:00 Midazolam HCl (Versed) 2 mg STK-MED ONCE .ROUTE ; Start 11/29/20 at 11:02; Stop 11/29/20 at 11:03; Status DC Fentanyl Citrate (Fentanyl 2ml Vial) 100 mcg STK-MED ONCE .ROUTE ; Start 11/29/20 at 11:03; Stop 11/29/20 at 11:03; Status DC Lidocaine/ Epinephrine (LIDOCAINE 2%-EPI 1:100,000 multi-dose) 20 ml STK-MED ONCE .ROUTE ; Start 11/29/20 at 11:03; Stop 11/29/20 at 11:03; Status DC Midazolam HCl (Versed) 2 mg 1X ONCE IV Last administered on 11/29/20at 12:35; Start 11/29/20 at 11:30; Stop 11/29/20 at 11:31; Status DC Fentanyl Citrate (Fentanyl 2ml Vial) 100 mcg 1X ONCE IV Last administered on 11/29/20at 12:36; Start 11/29/20 at 11:30; Stop 11/29/20 at 11:31; Status DC Lidocaine/ Epinephrine (LIDOCAINE 2%-EPI 1:100,000 multi-dose) 20 ml 1X ONCE IJ Last administered on 11/29/20at 12:35; Start 11/29/20 at 11:30; Stop 11/29/20 at 11:31; Status DC Cefazolin Sodium/ Dextrose 50 ml @ 100 mls/hr 1X ONCE IV Last administered on 11/29/20at 12:36; Start 11/29/20 at 11:30; Stop 11/29/20 at 11:59; Status DC Cefazolin Sodium/ Dextrose 50 ml @ As Directed STK-MED ONCE IV ; Start 11/29/20 at 11:25; Stop 11/29/20 at 11:25; Status DC Sodium Chloride 1,000 ml @ 1,000 mls/hr Q1H PRN IV hypotension; Start 11/29/20 at 13:00; Stop 11/29/20 at 18:59; Status DC Albumin Human 200 ml @ 200 mls/hr 1X PRN PRN IV Hypotension Last administered on 11/29/20at 13:20; Start 11/29/20 at 13:00; Stop 11/29/20 at 18:59; Status DC Sodium Chloride 1,000 ml @ 400 mls/hr Q2H30M PRN IV PATENCY; Start 11/29/20 at 13:00; Stop 11/30/20 at 00:59; Status DC Info (PHARMACY MONITORING -- do not chart) 1 each PRN DAILY PRN MC SEE COMMENTS; Start 11/29/20 at 13:00; Status UNV Info (PHARMACY MONITORING -- do not chart) 1 each PRN DAILY PRN MC SEE COMMENTS; Start 11/29/20 at 13:00 Furosemide (Lasix) 40 mg BID92 PO Last administered on 11/29/20at 17:39; Start 11/29/20 at 14:00 Apixaban (Eliquis) 5 mg BID PO Last administered on 11/29/20at 22:10; Start 11/29/20 at 21:00 Info (Anti-Coagulation Monitoring By Pharmacy) 1 each PRN DAILY PRN MC SEE COMMENTS; Start 11/29/20 at 14:45 Info (PHARMACY MONITORING -- do not chart) 1 each PRN DAILY PRN MC SEE COMMENTS; Start 11/30/20 at 12:45 Active Scripts Active Hydrocodone-Apap 5-325 (Hydrocodone Bit/Acetaminophen) 1 Tab Tablet 1 Tab PO PRN Q4HRS PRN Amlodipine Besylate 10 Mg Tablet 10 Mg PO DAILY Proair Hfa (Albuterol Sulfate) 8.5 Gm Hfa.aer.ad 2.5 Mg NEB PRN Q4HRS PRN 30 Days Reported Children's Aspirin (Aspirin) 81 Mg Tab.chew 1 Tab PO DAILY 30 Days Vitamin C (Ascorbic Acid) 500 Mg Capsule 500 Mg PO DAILY Furosemide 40 Mg/4 Ml Solution 100 Mg PO DAILY Coreg (Carvedilol) 25 Mg Tablet 3.125 Mg PO BIDWMEALS Amiodarone Hcl 200 Mg Tablet 1 Tab PO DAILY Docusate Sodium 100 Mg Capsule 1 Cap PO BID PRN 7 Days Ferrous Sulfate 325 Mg Tablet 1 Tab PO DAILY Vitamin D (Cholecalciferol (Vitamin D3)) 10,000 Unit Capsule 1 Cap PO DAILY 30 Days Vitamin B-12 (Cyanocobalamin (Vitamin B-12)) 1,000 Mcg Capsule 1 Cap PO DAILY 30 Days Flomax (Tamsulosin Hcl) 0.4 Mg Cap.er.24h 2 Cap PO DAILY Potassium Chloride (Potassium Chloride) 20 Meq Tablet.er 20 Meq PO DAILY Atorvastatin Calcium 40 Mg Tablet 1 Tab PO DAILY Isordil (Isosorbide Dinitrate) 40 Mg Tablet 20 Mg PO BID Hydralazine Hcl 50 Mg Tablet 2 Tab PO TID Furosemide 40 Mg Tablet 1 Tab PO DAILY Lisinopril 40 Mg Tablet 1 Tab PO DAILY Vitals/I & O Vital Sign - Last 24 Hours 11/29/20 11/29/20 11/29/20 11/29/20 17:11 17:40 19:22 20:02 Temp 98.7 98.7 Pulse 60 60 53 Resp 16 B/P (MAP) 137/75 (95) 137/72 103/54 (70) Pulse Ox 97 O2 Delivery Nasal Cannula Nasal Cannula O2 Flow Rate 3.0 3.0 11/29/20 11/29/20 11/29/20 11/29/20 22:09 22:10 22:30 23:09 Temp 98.7 98.7 Pulse 53 50 Resp 20 18 B/P (MAP) 114/56 114/56 (75) Pulse Ox 97 95 O2 Delivery Nasal Cannula Nasal Cannula Nasal Cannula O2 Flow Rate 3.0 2.5 3.0 11/30/20 11/30/20 11/30/20 11/30/20 03:35 07:00 07:23 08:00 Temp 97.4 97.8 97.4 97.8 Pulse 54 49 49 Resp 18 18 B/P (MAP) 122/56 (78) 119/67 (84) 119/67 Pulse Ox 98 99 99 O2 Delivery Nasal Cannula Nasal Cannula Nasal Cannula O2 Flow Rate 3.0 3.0 2.5 11/30/20 11/30/20 08:00 09:00 Pulse 49 B/P (MAP) 119/67 O2 Delivery Nasal Cannula O2 Flow Rate 2.5 Intake and Output 11/29/20 11/29/20 11/30/20 15:00 23:00 07:00 Intake Total 0 ml 330 ml 160 ml Output Total 850 ml 825 ml Balance -850 ml 330 ml -665 ml Justifications for Admission Other Justification CHINEDU FULLER MD Nov 30, 2020 14:21
[2020-11-30 14:48] VITALS: BP 117/62
[2020-11-30] MEDS: APIXABAN 5 MG TABLET. PO SCH ×2 (14:49→21:04)
[2020-11-30] MEDS: ATORVASTATIN CALCIUM 40 MG TABLET. PO SCH (14:49)
[2020-11-30] MEDS: ASPIRIN CHEWABLE 81 MG TABLET. PO SCH (14:49)
[2020-11-30] MEDS: TAMSULOSIN 0.4 MG CAP.ER.24H. PO SCH (14:49)
--- NOTE | 2020-11-30 16:16 | PDOC ---
PROGRESS NOTES Date of Service: DATE: 11/30/20 TIME: 16:15 Subjective Subjective Seen in HD unit, comfortable, no new complaints, off milrinone gtt Objective Objective Vital Signs Date Time Temp Pulse Resp B/P (MAP) Pulse Ox O2 Delivery O2 Flow Rate FiO2 11/30/20 14:48 98.3 54 18 117/62 (80) 95 Nasal Cannula 3.0 98.3 Intake and Output 11/30/20 07:00 Intake Total 490 ml Output Total 1675 ml Balance -1185 ml Intake Oral 490 ml Output Urine Total 1675 ml Physical Exam Abdomen: Normal bowel sounds, Soft, No tenderness, No masses Heart: Regular rate, Normal S1, Normal S2 Extremities: Other (2+ pitting) General: Alert, Cooperative, No acute distress HEENT: Atraumatic, EOMI, Mucous membr. moist/pink Lungs: Clear to auscultation, Normal air movement MUSCULOSKELETAL: No joint tenderness, Other (3 EDEMA) Neuro: Normal speech Psych/Mental Status: Mental status NL Skin: No breakdown Diagnosis RENAL FAILURE: ESRD Assessment Assessment 1. Acute on chronic respiratory failure; multifactorial with renal failure, CHG, and hypoalbuminemia. Improved 2. Acute on chronic systolic CHF: better compensated. He is currently off milrinone gtt and on HD 2. Mixed ischemic, non-ischemic CMP; Echo 11/03 with LVEF 25%. 3. CAD s/p PCI/REJI to OM1 (04/2014). clinically stable, chest pain free 4. Type B aortic dissection; s/p transcatheter endovascular aneurysm repair 11/24/19 at [facility] 5. PAFIB; On Amiodarone.and eliquis 6. SSS s/p leadless PPM (micra); Tele showed intermittent SR and V-paced rhythm 7. Hypertension; controlled 8. Hyperlipidemia; statin 9. JOSE on CKD, hyperkalemia; HD to commence 10. Diabetes, II: Per IM 11. Leukopenia 12. Hypothyroidism 13. BPH s/p dailey. Hematuria resolved 14. Protein calorie malnutrition, anasarca, significant scrotal edema 15. Anemia of chronic disease Comment Review of Relevant I have reviewed the following items estella (where applicable) has been applied. Labs Laboratory Tests Test 11/30/20 06:33 Sodium Level 146 mmol/L (136-145) Potassium Level 4.1 mmol/L (3.5-5.1) Chloride Level 111 mmol/L (98-107) Carbon Dioxide Level 29 mmol/L (21-32) Anion Gap 6 (6-14) Blood Urea Nitrogen 39 mg/dL (8-26) Creatinine 2.6 mg/dL (0.7-1.3) Estimated GFR (Cockcroft-Gault) 29.0 Glucose Level 99 mg/dL (70-99) Calcium Level 8.4 mg/dL (8.5-10.1) Phosphorus Level 2.8 mg/dL (2.6-4.7) Magnesium Level 2.2 mg/dL (1.8-2.4) Medications Current Medications Apixaban (Eliquis) 5 mg BID PO Last administered on 11/30/20at 14:49; Start 11/29/20 at 21:00 Info (PHARMACY MONITORING -- do not chart) 1 each PRN DAILY PRN MC SEE COMMENTS; Start 11/30/20 at 12:45 Vitals/I & O Vital Sign - Last 24 Hours 11/29/20 11/29/20 11/29/20 11/29/20 17:11 17:40 19:22 20:02 Temp 98.7 98.7 Pulse 60 60 53 Resp 16 B/P (MAP) 137/75 (95) 137/72 103/54 (70) Pulse Ox 97 O2 Delivery Nasal Cannula Nasal Cannula O2 Flow Rate 3.0 3.0 11/29/20 11/29/20 11/29/20 11/29/20 22:09 22:10 22:30 23:09 Temp 98.7 98.7 Pulse 53 50 Resp 20 18 B/P (MAP) 114/56 114/56 (75) Pulse Ox 97 95 O2 Delivery Nasal Cannula Nasal Cannula Nasal Cannula O2 Flow Rate 3.0 2.5 3.0 11/30/20 11/30/20 11/30/20 11/30/20 03:35 07:00 07:23 08:00 Temp 97.4 97.8 97.4 97.8 Pulse 54 49 49 Resp 18 18 B/P (MAP) 122/56 (78) 119/67 (84) 119/67 Pulse Ox 98 99 99 O2 Delivery Nasal Cannula Nasal Cannula Nasal Cannula O2 Flow Rate 3.0 3.0 2.5 11/30/20 11/30/20 11/30/20 08:00 09:00 14:48 Temp 98.3 98.3 Pulse 54 54 Resp 18 B/P (MAP) 117/62 117/62 (80) Pulse Ox 95 O2 Delivery Nasal Cannula Nasal Cannula O2 Flow Rate 2.5 3.0 Intake and Output 11/29/20 11/29/20 11/30/20 15:00 23:00 07:00 Intake Total 0 ml 330 ml 160 ml Output Total 850 ml 825 ml Balance -850 ml 330 ml -665 ml REGAN HOWARD MD Nov 30, 2020 16:16
[2020-11-30 19:00] VITALS: BP 122/53
[2020-11-30 23:20] VITALS: BP 105/52
[2020-12-01 03:03] VITALS: BP 143/66
[2020-12-01 07:00] VITALS: BP 140/68
[2020-12-01] MEDS: ASPIRIN CHEWABLE 81 MG TABLET. PO SCH (08:20)
[2020-12-01] MEDS: APIXABAN 5 MG TABLET. PO SCH ×2 (08:20→21:16)
[2020-12-01] MEDS: ATORVASTATIN CALCIUM 40 MG TABLET. PO SCH (08:21)
[2020-12-01] MEDS: ISOSORBIDE DINITRATE 10 MG TABLET. PO SCH ×2 (08:21→21:15)
[2020-12-01] MEDS: FUROSEMIDE 40 MG TABLET. PO SCH ×2 (08:21→14:27)
[2020-12-01] MEDS: TAMSULOSIN 0.4 MG CAP.ER.24H. PO SCH (08:21)
[2020-12-01 10:46] VITALS: BP 115/57
--- NOTE | 2020-12-01 11:09 | PN ---
DATE: 12/01/2020 SUBJECTIVE: The patient is resting, slightly propped up in bed, in no apparent distress, awake, alert. On questioning him, he denied any complaint. Nursing staff did not voice any concern and stated that he has an uneventful night. PHYSICAL EXAMINATION: GENERAL: When I examined him, he looked well and was clearly in no apparent respiratory distress. Pale, no jaundice, cyanosis or thyromegaly. No jugular venous distention. No limb edema. VITAL SIGNS: His heart rate was 57, blood pressure was 140/68, temperature was 98.4, respiratory rate was 18, and oxygen saturation was 92% on 2 liters of oxygen by nasal cannula. HEAD, EYES, EARS, NOSE, AND THROAT: Normocephalic, atraumatic. NECK: Supple. HEART: Normal first and second heart sounds. No gallop or murmur. CHEST: Clear to auscultation. No crepitation or rhonchi. ABDOMEN: Distended, soft, nontender. NEUROLOGIC: He is awake, alert, responding appropriately. All cranial nerves are intact. He moves all extremities without difficulty. He ambulates with a cane or walker. His intake was 490, output was 1675. LABORATORY DATA: Today's labs are still pending at the time of this dictation. ASSESSMENT: 1. End-stage renal disease, on hemodialysis via a tunneled hemodialysis catheter. 2. Acute on chronic systolic congestive heart failure with an ejection fraction 25%. 3. Ischemic cardiomyopathy. 4. Chronic atrial fibrillation, rate controlled, well anticoagulated. 5. The patient has coronary artery disease, status post percutaneous coronary intervention with stent deployment. 6. Hypertension. 7. Hyperlipidemia. 8. Chronic obstructive pulmonary disease. 9. Anemia of chronic kidney disease. 10. Benign prostatic hypertrophy, for which he had an indwelling Miguel catheter. 11. Type 2 diabetes mellitus. 12. The patient has sick sinus syndrome, for which he has leadless pacemaker. 13. Generalized anasarca with marked hypokalemia, improving. We did a 24-hour urine collection to quantify the proteinuria, the result of which is still pending at the time of this dictation. PLAN: To continue the hemodialysis as per Nephrology team. Continue with all his other medications including amiodarone to control the heart rate and apixaban for stroke prevention. Continue with physical and occupational therapy. MYNOR CHOW MD DR: Brown JOB#: [id number] / [id number]
[2020-12-01] MEDS: CARVEDILOL 3.125 MG TABLET. PO SCH ×2 (11:57→17:32)
[2020-12-01] MEDS: ANTI-COAG MONITOR BY PHARMACY. MC PRN (12:15)
[2020-12-01 14:26] VITALS: BP 105/54
--- NOTE | 2020-12-01 14:50 | PDOC ---
PROGRESS NOTES Date of Service: DATE: 12/01/20 TIME: 14:49 Subjective Subjective Dyspnea improved. Denied any chest pain. Objective Objective Vital Signs Date Time Temp Pulse Resp B/P (MAP) Pulse Ox O2 Delivery O2 Flow Rate FiO2 12/01/20 14:26 97.7 53 18 105/54 (71) 93 Nasal Cannula 3.0 97.7 Intake and Output 12/01/20 07:00 Intake Total 850 ml Output Total 750 ml Balance 100 ml Intake Oral 850 ml Output Urine Total 750 ml # Bowel Movements 2 Physical Exam Abdomen: Normal bowel sounds, Soft, No tenderness, No masses Heart: Regular rate, Normal S1, Normal S2 Extremities: Other (2+ pitting) General: Alert, Cooperative, No acute distress HEENT: Atraumatic, EOMI, Mucous membr. moist/pink Lungs: Clear to auscultation, Normal air movement MUSCULOSKELETAL: No joint tenderness, Other (3 EDEMA) Neuro: Normal speech Psych/Mental Status: Mental status NL Skin: No breakdown Diagnosis RENAL FAILURE: ESRD Assessment Assessment 1. Acute on chronic respiratory failure; multifactorial with renal failure, CHG, and hypoalbuminemia. Improved 2. Acute on chronic systolic CHF: better compensated. He is currently off milrinone gtt and on HD 2. Mixed ischemic, non-ischemic CMP; Echo 11/03 with LVEF 25%. 3. CAD s/p PCI/REJI to OM1 (04/2014). clinically stable, chest pain free 4. Type B aortic dissection; s/p transcatheter endovascular aneurysm repair 11/24/19 at [facility] 5. PAFIB; On Amiodarone.and eliquis 6. SSS s/p leadless PPM (micra); Tele showed intermittent SR and V-paced rhythm 7. Hypertension; controlled 8. Hyperlipidemia; statin 9. JOSE on CKD, hyperkalemia; HD to commence 10. Diabetes, II: Per IM 11. Leukopenia 12. Hypothyroidism 13. BPH s/p dailey. Hematuria resolved 14. Protein calorie malnutrition, anasarca, significant scrotal edema 15. Anemia of chronic disease Comment Review of Relevant I have reviewed the following items estella (where applicable) has been applied. Vitals/I & O Vital Sign - Last 24 Hours 11/30/20 11/30/20 11/30/20 11/30/20 17:37 19:00 19:16 21:05 Temp 98.8 98.8 Pulse 54 57 57 Resp 16 B/P (MAP) 117/62 122/53 (76) 122/53 Pulse Ox 92 O2 Delivery Nasal Cannula Nasal Cannula O2 Flow Rate 3.0 3.0 11/30/20 12/01/20 12/01/20 12/01/20 23:20 03:03 07:00 08:00 Temp 98.5 97.8 98.4 98.5 97.8 98.4 Pulse 51 50 57 Resp 18 18 18 B/P (MAP) 105/52 (69) 143/66 (91) 140/68 (92) Pulse Ox 96 96 92 O2 Delivery Nasal Cannula Nasal Cannula Nasal Cannula Nasal Cannula O2 Flow Rate 3.0 3.0 3.0 3.0 12/01/20 12/01/20 12/01/20 12/01/20 08:21 10:46 11:57 14:26 Temp 98.2 97.7 98.2 97.7 Pulse 62 53 55 53 Resp 18 18 B/P (MAP) 115/57 (76) 105/54 (71) Pulse Ox 98 93 O2 Delivery Nasal Cannula Nasal Cannula O2 Flow Rate 3.0 3.0 Intake and Output 11/30/20 11/30/20 12/01/20 15:00 23:00 07:00 Intake Total 850 ml 0 ml Output Total 350 ml 400 ml Balance 500 ml -400 ml REGAN HOWARD MD Dec 01, 2020 14:50
[2020-12-01 19:00] VITALS: BP 131/67
[2020-12-01 22:54] VITALS: BP 125/62
[2020-12-02 02:58] VITALS: BP 144/69
[2020-12-02 03:26] LABS: HEMATOCRIT 25.1 % (39.0-53.0); HEMOGLOBIN 8.4 g/dL (13.0-17.5)
[2020-12-02 03:36] LABS: CALCIUM 8.5 mg/dL (8.5-10.1); CREATININE 2.2 mg/dL (0.7-1.3); GFR 35.1; POTASSIUM 3.3 mmol/L (3.5-5.1)
[2020-12-02 07:00] VITALS: BP 144/72
--- NOTE | 2020-12-02 09:55 | PN ---
DATE: 12/02/2020 SUBJECTIVE: The patient is resting, slightly propped up in bed, no apparent distress. On questioning him, he denied any complaint. The nursing staff did not voice any concerns that he had an uneventful night. PHYSICAL EXAMINATION: GENERAL: When I examined him, he looked pale, but no jaundice, cyanosis or thyromegaly. No jugular venous distention. No lower limb edema. VITAL SIGNS: His heart rate was 51, blood pressure was 144/72, temperature was 97.6, respiratory rate was 16, and oxygen saturation was 92% on room air. HEAD, EYES, EARS, NOSE AND THROAT: Showed normocephalic, atraumatic. NECK: Supple. HEART: Normal first and second heart sounds. No gallop, rub or murmur. CHEST: Clear to auscultation. No crepitation or rhonchi. ABDOMEN: Distended, soft, nontender. NEUROLOGIC: He is awake, alert, responding appropriately. All cranial nerves are intact. EXTREMITIES: He moves extremities without difficulty. Examination of the extremities showed no clubbing, cyanosis, but marked bilateral lower limb edema, generalized anasarca that is slightly improving. LABORATORY DATA: His lab work this morning showed hemoglobin 8.4, hematocrit 25.1. Serum sodium 145, potassium 3.3, chloride 110, bicarbonate 30, anion gap of 5, BUN 34, creatinine was 2.2, estimated GFR was 35 mL per minute. His glucose 118, calcium was 8.5. ASSESSMENT: 1. End-stage renal disease, on hemodialysis via a tunneled hemodialysis catheter. 2. [id number] systolic congestive heart failure with ejection fraction of 25%. 3. Ischemic cardiomyopathy. 4. Chronic atrial fibrillation, rate controlled, well anticoagulated. 5. The patient has coronary artery disease, status post percutaneous coronary intervention with stent deployment. 6. Hypertension. 7. Hyperlipidemia. 8. Chronic obstructive pulmonary disease. 9. Anemia of chronic kidney disease. 10. Benign prostatic hypertrophy for which he had an indwelling Miguel catheter. 11. Type 2 diabetes mellitus. 12. The patient has sick sinus syndrome, for which he has leadless pacemaker. 13. Generalized anasarca with marked hypoalbuminemia. We did a 24-hour urine collection, the result of which is still pending at the time of this dictation. PLAN: To continue with hemodialysis as per Nephrology team. Continue with all his other medications including amiodarone for controlled heart rate and apixaban for stroke prevention. Continue with physical and occupational therapy. We will consult the telephonic nurse case manager to arrange for him to have an outpatient dialysis. He can be discharged to [place] to continue the process of rehabilitation. MYNOR CHOW MD DR: TOMY/edil JOB#: [id number] / [id number]
[2020-12-02] MEDS ORDERED: POTASSIUM CHLORIDE 20 MEQ TABLET.ER. PO ONE (10:15)
--- NOTE | 2020-12-02 10:30 | PDOC ---
DATE OF SERVICE DATE: 12/02/20 TIME: 10:16 SUBJECTIVE ROS States feeling good, denies SOB OBJECTIVE Vital Signs Vital Signs Date Time Temp Pulse Resp B/P (MAP) Pulse Ox O2 Delivery O2 Flow Rate FiO2 12/02/20 07:00 97.6 51 16 144/72 (96) 92 Room Air 97.6 12/02/20 02:58 3.0 I & 0 Intake and Output 12/02/20 07:00 Intake Total 880 ml Output Total 1300 ml Balance -420 ml Intake Oral 880 ml Output Urine Total 1300 ml PHYSICAL EXAM Physical Exam General: No acute distress, sitting up comfortably HEENT: Atraumatic, membr. moist/pink, on RA Lungs: Clear to auscultation, non labored Heart: Regular rate, Normal S1, Normal S2 Abdomen: Normal bowel sounds, Soft, No tenderness, No masses Extremities: Other 1-2+ pitting) Dailey + DIAGNOSIS/ASSESSMENT Assessment & Plan Acute on chronic kidney injury- was hospitalized in Oct 2020 , dced with improving renal function. Hospitalized again , started on Dialysis for JOSE/Anasarca - last HD was on 11/30, currently stable, no emergent indication for HD Access- Tunnelled HDC CKD stage 3 - baseline Cr 1.8 in 2019, Pt reports he was told at [facility] many years ago . Renal US - RK 8.2 x 3.2 x 4.3 cm, LK 7.7 x 4.0 x 5.0 cm. No hydronephrosis. Atrophic hyperechoic kidneys, indicating medical renal disease. Anemia- Hgb dropping , defer to primary, currently on NOREEN Renal Cyst- Left inferior renal cyst measures 2.0 cm. Right renal cyst with mild complexity measures 1.8 centimeters, similar compared to prior. Bosniak 1 and Bosniak 2 renal cysts, unchanged. Infra-renal Abd aortic Aneurysm Acute hypoxic respiratory failure, resolved, currently on RA Type 2 diabetes mellitus. Mixed ischemic, non-ischemic CMP; Echo 11/03 with LVEF 25%. Off Milrinone CAD s/p PCI/REJI to OM1 (04/2014). clinically stable, chest pain free Type B aortic dissection; s/p transcatheter endovascular aneurysm repair 11/24/19 at [facility] PAFIB SSS s/p leadless PPM (micra); Tele showed intermittent SR and V-paced rhythm Hypertension; controlled Leukopenia BPH s/p dailey. Hematuria resolved COMMENT/RELEVANT DATA Meds Current Medications Medications (Trade) Dose Ordered Sig/Leonor Start Time Stop Time Status Last Admin Dose Admin Acetaminophen/ Hydrocodone Bitart (Lortab 5/325) 1 tab PRN Q4HRS PRN 11/27/20 17:45 11/29/20 22:09 1 TAB Albumin Human 200 ml @ 200 mls/hr 1X PRN PRN 11/29/20 13:00 11/29/20 18:59 DC 11/29/20 13:20 200 MLS/HR Albuterol Sulfate (Ventolin Neb Soln) 2.5 mg PRN Q4HRS PRN 11/27/20 17:45 Apixaban (Eliquis) 5 mg BID 11/29/20 21:00 12/01/20 21:16 5 MG Aspirin (Aspirin Chewable) 81 mg DAILY 11/28/20 09:00 12/01/20 08:20 81 MG Atorvastatin Calcium (Lipitor) 40 mg DAILY 11/28/20 09:00 12/01/20 08:21 40 MG Carvedilol (Coreg) 3.125 mg BIDWMEALS 11/27/20 18:30 12/01/20 17:32 3.125 MG Cefazolin Sodium/ Dextrose 50 ml @ As Directed STK-MED ONCE 11/29/20 11:25 11/29/20 11:25 DC Darbepoetin Dante (ARANESP for DIALYSIS PTS) 60 mcg We 11/28/20 21:00 11/28/20 21:18 60 MCG Docusate Sodium (Colace) 100 mg PRN BID PRN 11/27/20 17:45 Fentanyl Citrate (Fentanyl 2ml Vial) 100 mcg 1X ONCE 11/29/20 11:30 11/29/20 11:31 DC 11/29/20 12:36 50 MCG Furosemide (Lasix) 40 mg [id number] 11/29/20 14:00 12/01/20 14:27 40 MG Info (Anti-Coagulation Monitoring By Pharmacy) 1 each PRN DAILY PRN 11/29/20 14:45 12/01/20 12:15 1 EACH Info (PHARMACY MONITORING -- do not chart) 1 each PRN DAILY PRN 11/30/20 12:45 Isosorbide Dinitrate (Isordil) 20 mg BID 11/27/20 21:00 12/01/20 21:15 20 MG Lidocaine/ Epinephrine (LIDOCAINE 2%-EPI 1:100,000 multi-dose) 20 ml 1X ONCE 11/29/20 11:30 11/29/20 11:31 DC 11/29/20 12:35 11 ML Midazolam HCl (Versed) 2 mg 1X ONCE 11/29/20 11:30 11/29/20 11:31 DC 11/29/20 12:35 1 MG Milrinone Lactate/ Dextrose 100 ml @ 2.959 mls/ hr CONT PRN 11/27/20 15:45 11/29/20 12:23 DC 11/28/20 18:14 2.959 MLS/HR Sodium Chloride 1,000 ml @ 400 mls/hr Q2H30M PRN 11/29/20 13:00 11/30/20 00:59 DC Tamsulosin HCl (Flomax) 0.8 mg DAILY 11/28/20 09:00 12/01/20 08:21 0.8 MG Lab Laboratory Tests Test 12/02/20 03:09 Hemoglobin 8.4 g/dL (13.0-17.5) Hematocrit 25.1 % (39.0-53.0) Sodium Level 145 mmol/L (136-145) Potassium Level 3.3 mmol/L (3.5-5.1) Chloride Level 110 mmol/L (98-107) Carbon Dioxide Level 30 mmol/L (21-32) Anion Gap 5 (6-14) Blood Urea Nitrogen 34 mg/dL (8-26) Creatinine 2.2 mg/dL (0.7-1.3) Estimated GFR (Cockcroft-Gault) 35.1 Glucose Level 118 mg/dL (70-99) Calcium Level 8.5 mg/dL (8.5-10.1) Results All relevant outside records, renal labs, imaging studies, telemetry/EKG's were reviewed. Justicifation of Admission Dx: Justifications for Admission: Justification of Admission Dx: Yes DEB ANGELES MD Dec 02, 2020 10:30
[2020-12-02] MEDS: ATORVASTATIN CALCIUM 40 MG TABLET. PO SCH (10:31)
[2020-12-02] MEDS: APIXABAN 5 MG TABLET. PO SCH ×2 (10:32→22:03)
[2020-12-02] MEDS: ISOSORBIDE DINITRATE 10 MG TABLET. PO SCH ×2 (10:33→22:03)
[2020-12-02] MEDS: ASPIRIN CHEWABLE 81 MG TABLET. PO SCH (10:33)
[2020-12-02] MEDS: FUROSEMIDE 40 MG TABLET. PO SCH ×2 (10:33→15:11)
[2020-12-02] MEDS: CARVEDILOL 3.125 MG TABLET. PO SCH ×2 (10:34→17:38)
[2020-12-02] MEDS: TAMSULOSIN 0.4 MG CAP.ER.24H. PO SCH (10:35)
--- NOTE | 2020-12-02 10:47 | PDOC ---
LYNDSAY ZHAO FEED MILL SUPERVISOR 12/02/20 1047: CARDIO Progress Notes Date and Time Date of Service 12/02/20 Time of Evaluation 1045 Subjective Subjective: No shortness of breath, Other (LE, scrotal edema better, but persists ) Vitals Vitals Vital Signs Date Time Temp Pulse Resp B/P (MAP) Pulse Ox O2 Delivery O2 Flow Rate FiO2 12/02/20 10:34 59 12/02/20 10:33 144/72 12/02/20 07:00 97.6 16 92 Room Air 97.6 12/02/20 02:58 3.0 Weight Weight [ ] Input and Output Intake and Output Intake and Output 12/02/20 07:00 Intake Total 880 ml Output Total 1300 ml Balance -420 ml Intake Oral 880 ml Output Urine Total 1300 ml Laboratory Labs Laboratory Tests Test 12/02/20 03:09 Hemoglobin 8.4 g/dL (13.0-17.5) Hematocrit 25.1 % (39.0-53.0) Sodium Level 145 mmol/L (136-145) Potassium Level 3.3 mmol/L (3.5-5.1) Chloride Level 110 mmol/L (98-107) Carbon Dioxide Level 30 mmol/L (21-32) Anion Gap 5 (6-14) Blood Urea Nitrogen 34 mg/dL (8-26) Creatinine 2.2 mg/dL (0.7-1.3) Estimated GFR (Cockcroft-Gault) 35.1 Glucose Level 118 mg/dL (70-99) Calcium Level 8.5 mg/dL (8.5-10.1) Review of Systems Constitutional: yes: weakness, alert, oriented Ears/Nose/Throat: Yes: no symptom reported Eyes: Yes: no symptom reported Pulmonary: Yes dyspnea Cardiovascular: Yes edema Gastrointestional: Yes: no symptom reported Genitourinary: Yes: no symptom reported Skin: Yes no symptom reported Psychiatric/Neurological: Yes: no symptom reported Physical Exam HEENT: Neck Supple W Full Motion Chest: Symmetric LUNGS: Other (diminished bases) Heart: RRR (v-paced ) Abdomen: Soft N/T Extremities: Other (Anasarca, 2+ bilateral LE edema and scrotal edema ) Neurology: alert, oriented, follow commands, other Assessment Assessment 1. Acute on chronic respiratory failure; multifactorial with renal failure, CHF, and hypoalbuminemia. Improved 2. Acute on chronic systolic CHF: better compensated. 2. Mixed ischemic, non-ischemic CMP; Echo 11/03 with LVEF 25%. 3. CAD s/p PCI/REJI to OM1 (04/2014). clinically stable, chest pain free 4. Type B aortic dissection; s/p transcatheter endovascular aneurysm repair 11/24/19 at [facility] 5. PAFIB; On Amiodarone.and eliquis 6. SSS s/p leadless PPM (micra); Tele showed intermittent SR and V-paced rhythm 7. Hypertension; controlled 8. Hyperlipidemia; statin 9. JOSE on CKD, hyperkalemia; HD initiated 10. Diabetes, II: Per IM 11. Leukopenia 12. Hypothyroidism 13. Hypokalemia; replaced. 14. Protein calorie malnutrition, anasarca, significant scrotal edema 15. Anemia of chronic disease Recommendations Fluid offloading via HD Continue coreg for HF optimization. Hold ACEi for now; Will resume if ESRD maintaining on HD Continue amiodarone for rhythm maintenance. Secondary prevention; ASA/statin therapy Eliquis for stroke prophylaxis . Monitor H and H Consider AICD for prevention of SCD on an outpatient basis Justicifation of Admission Dx: Justifications for Admission: Justification of Admission Dx: Yes HERVE MARSH MD 12/02/20 2213: CARDIO Progress Notes Plan Plan Pt. seen and examined. Agree with above SHEET [employer]OCK INSTALLATION HELPER note. Case discussed with Dr. Kirby, needs more UF. Will plan for fluid removal tmrw and likely for next 2 days. Anticipate DC closer to . Consider outpt right and left heart cath after stabilization depending on goals of care. Thanks LYNDSAY ZHAO APRN Dec 02, 2020 10:47 HERVE MARSH MD Dec 02, 2020 22:13
[2020-12-02 11:00] VITALS: BP 135/63
[2020-12-02 15:00] VITALS: BP 133/66
[2020-12-02] MEDS: ANTI-COAG MONITOR BY PHARMACY. MC PRN (15:30)
[2020-12-02 19:39] VITALS: BP 136/68
[2020-12-02 22:45] VITALS: BP 124/65
[2020-12-03 02:04] VITALS: BP 137/70
[2020-12-03 07:00] VITALS: BP 152/77
[2020-12-03 08:08] LABS: CALCIUM 8.3 mg/dL (8.5-10.1); CREATININE 2.1 mg/dL (0.7-1.3); POTASSIUM 3.6 mmol/L (3.5-5.1)
[2020-12-03] MEDS: CARVEDILOL 3.125 MG TABLET. PO SCH (08:20)
[2020-12-03] MEDS: FUROSEMIDE 40 MG TABLET. PO SCH ×2 (08:21→14:23)
[2020-12-03] MEDS: APIXABAN 5 MG TABLET. PO SCH (08:21)
[2020-12-03] MEDS: ASPIRIN CHEWABLE 81 MG TABLET. PO SCH (08:21)
[2020-12-03] MEDS: ATORVASTATIN CALCIUM 40 MG TABLET. PO SCH (08:22)
[2020-12-03] MEDS: ISOSORBIDE DINITRATE 10 MG TABLET. PO SCH (08:22)
[2020-12-03] MEDS: TAMSULOSIN 0.4 MG CAP.ER.24H. PO SCH (08:22)
--- NOTE | 2020-12-03 08:28 | PN ---
DATE: 12/03/2020 SUBJECTIVE: The patient is resting slightly propped up in bed, no apparent respiratory distress. He is awake, alert. On questioning him, he denied any complaint. In particular, denied any chest pain, shortness of breath, orthopnea or paroxysmal nocturnal dyspnea. He is still concerned about his swollen legs, scrotum and penis. His appetite has improved dramatically, according to him. PHYSICAL EXAMINATION: GENERAL: When I examined him this morning, he was pale, not jaundiced or cyanosed, no thyromegaly, no jugular venous distention, but generalized anasarca. VITAL SIGNS: His heart rate was 55, blood pressure was 152/77, temperature was 98, respiratory rate was 18, and oxygen saturation was 93% on room air. HEAD, EYES, EARS, NOSE AND THROAT: Normocephalic, atraumatic. NECK: Supple. HEART: Showed normal first and second heart sounds. No gallop or murmur. CHEST: Shows central trachea, equal bilateral chest expansion, air entry, vesicular sounds. I could not appreciate any crepitation or rhonchi. He has a tunneled hemodialysis catheter to the right internal jugular vein. ABDOMEN: Distended, soft, nontender. NEUROLOGICAL: He is awake, alert, responding appropriately. All cranial nerves are intact. EXTREMITIES: He moves extremities without difficulty. He ambulates with a walker. He continues to have generalized anasarca with marked scrotal swelling. His intake over the last 24 hours was 1880, output was 1300. LABORATORY DATA: Today's labs are still pending at the time of this dictation. ASSESSMENT: 1. End-stage renal disease, on hemodialysis via a tunneled hemodialysis catheter. The patient will be dialyzed for 2 more sessions, today and tomorrow; and hopefully he can be discharged back to [facility] on . 2. Tcuxb-zw-giipuoa systolic congestive heart failure with ejection fraction of 25%. 3. Ischemic cardiomyopathy. 4. Chronic atrial fibrillation, rate controlled, well anticoagulated on apixaban. 5. The patient has coronary artery disease, status post percutaneous coronary intervention with stent deployment. 6. Hypertension. 7. Hyperlipidemia. 8. Chronic obstructive pulmonary disease. 9. Anemia of chronic kidney disease. 10. Benign prostatic hypertrophy for which he has an indwelling Miguel catheter. 11. Type 2 diabetes mellitus. 12. The patient has sick sinus syndrome for which he has leadless pacemaker. 13. Generalized anasarca and marked hypoalbuminemia. We did a 24-hour urine collection to quantify proteinuria, the result of which is surprisingly only 76 mg in 24 hours. PLAN: Obviously to continue with hemodialysis and ultrafiltration today and tomorrow and hopefully discharge him back to [facility] on . MYNOR CHOW MD DR: TOMY/edil JOB#: [id number] / [id number]
[2020-12-03] MEDS ORDERED: DIALYSIS PATIENT. MC PRN ×2 (08:30)
[2020-12-03] MEDS ORDERED: IV NORMAL SALINE 1000ML BAG 1,000 ML IV PRN (08:30)
[2020-12-03] MEDS ORDERED: ALBUMIN HUMAN 25% 200 ML IV PRN (08:30)
--- NOTE | 2020-12-03 09:08 | PDOC ---
DATE OF SERVICE DATE: 12/03/20 TIME: 09:08 SUBJECTIVE ROS States feeling good, denies SOB , seen on HD- for IF only OBJECTIVE Vital Signs Vital Signs Date Time Temp Pulse Resp B/P (MAP) Pulse Ox O2 Delivery O2 Flow Rate FiO2 12/03/20 08:22 55 152/77 12/03/20 07:36 Room Air 12/03/20 07:00 98.0 18 93 98.0 12/02/20 08:00 3.0 I & 0 Intake and Output 12/03/20 07:00 Intake Total 838 ml Output Total 1175 ml Balance -337 ml Intake Oral 838 ml Output Urine Total 1175 ml # Bowel Movements 1 PHYSICAL EXAM Physical Exam General: No acute distress, sitting up comfortably HEENT: Atraumatic, membr. moist/pink, on RA Lungs: Clear to auscultation, non labored Heart: Regular rate, Normal S1, Normal S2 Abdomen: Normal bowel sounds, Soft, No tenderness, No masses Extremities: Other 1-2+ pitting) Dailey + DIAGNOSIS/ASSESSMENT Assessment & Plan Acute on chronic kidney injury- was hospitalized in Oct 2020 , dced with improving renal function. Hospitalized again , started on Dialysis for JOSE/Anasarca - last HD was on 11/30, Renal function improving , E-Lytes stable . UF only today He has chair time at [facility] on TTS , discussed plan with charge nurse . From renal standpoint can be dced and go to OP unit on . Monitor for renal recovery Voiding trial prior if plan to remove dailey (has Dx of BPH) Edema- 2/2 CHF and hypolabuminemia, currently on RA . Continue diuretics . Daily weight (at home ) , maintain Wt and BP log Access- Tunnelled HDC CKD stage 3 - baseline Cr 1.8 in 2019, Pt reports he was told at [facility] many years ago . Renal US - RK 8.2 x 3.2 x 4.3 cm, LK 7.7 x 4.0 x 5.0 cm. No hydronephrosis. Atrophic hyperechoic kidneys, indicating medical renal disease. Anemia- Hgb dropping , defer to primary, currently on NOREEN Renal Cyst- Left inferior renal cyst measures 2.0 cm. Right renal cyst with mild complexity measures 1.8 centimeters, similar compared to prior. Bosniak 1 and Bosniak 2 renal cysts, unchanged. Infra-renal Abd aortic Aneurysm Acute hypoxic respiratory failure, resolved, currently on RA Type 2 diabetes mellitus. Mixed ischemic, non-ischemic CMP; Echo 11/03 with LVEF 25%. Off Milrinone CAD s/p PCI/REJI to OM1 (04/2014). clinically stable, chest pain free Type B aortic dissection; s/p transcatheter endovascular aneurysm repair 11/24/19 at [facility] PAFIB SSS s/p leadless PPM (micra); Tele showed intermittent SR and V-paced rhythm Hypertension; controlled Leukopenia BPH s/p dailey. Hematuria resolved COMMENT/RELEVANT DATA Meds Current Medications Medications (Trade) Dose Ordered Sig/Leonor Start Time Stop Time Status Last Admin Dose Admin Acetaminophen/ Hydrocodone Bitart (Lortab 5/325) 1 tab PRN Q4HRS PRN 11/27/20 17:45 11/29/20 22:09 1 TAB Albumin Human 200 ml @ 200 mls/hr 1X PRN PRN 12/03/20 08:30 12/03/20 14:29 Albuterol Sulfate (Ventolin Neb Soln) 2.5 mg PRN Q4HRS PRN 11/27/20 17:45 Apixaban (Eliquis) 5 mg BID 11/29/20 21:00 12/03/20 08:21 5 MG Aspirin (Aspirin Chewable) 81 mg DAILY 11/28/20 09:00 12/03/20 08:21 81 MG Atorvastatin Calcium (Lipitor) 40 mg DAILY 11/28/20 09:00 12/03/20 08:22 40 MG Carvedilol (Coreg) 3.125 mg BIDWMEALS 11/27/20 18:30 12/03/20 08:20 3.125 MG Cefazolin Sodium/ Dextrose 50 ml @ As Directed STK-MED ONCE 11/29/20 11:25 11/29/20 11:25 DC Darbepoetin Dante (ARANESP for DIALYSIS PTS) 60 mcg We 11/28/20 21:00 11/28/20 21:18 60 MCG Docusate Sodium (Colace) 100 mg PRN BID PRN 11/27/20 17:45 Fentanyl Citrate (Fentanyl 2ml Vial) 100 mcg 1X ONCE 11/29/20 11:30 11/29/20 11:31 DC 11/29/20 12:36 50 MCG Furosemide (Lasix) 40 mg BID92 11/29/20 14:00 12/03/20 08:21 40 MG Info (Anti-Coagulation Monitoring By Pharmacy) 1 each PRN DAILY PRN 11/29/20 14:45 12/02/20 15:30 1 EACH Info (PHARMACY MONITORING -- do not chart) 1 each PRN DAILY PRN 12/03/20 08:30 Isosorbide Dinitrate (Isordil) 20 mg BID 11/27/20 21:00 12/03/20 08:22 20 MG Lidocaine/ Epinephrine (LIDOCAINE 2%-EPI 1:100,000 multi-dose) 20 ml 1X ONCE 11/29/20 11:30 11/29/20 11:31 DC 11/29/20 12:35 11 ML Midazolam HCl (Versed) 2 mg 1X ONCE 11/29/20 11:30 11/29/20 11:31 DC 11/29/20 12:35 1 MG Milrinone Lactate/ Dextrose 100 ml @ 2.959 mls/ hr CONT PRN 11/27/20 15:45 11/29/20 12:23 DC 11/28/20 18:14 2.959 MLS/HR Potassium Chloride (Klor-Con) 40 meq 1X ONCE 12/02/20 10:15 12/02/20 10:17 DC 12/02/20 10:30 40 MEQ Sodium Chloride 1,000 ml @ 400 mls/hr Q2H30M PRN 12/03/20 08:30 12/03/20 20:29 Tamsulosin HCl (Flomax) 0.8 mg DAILY 11/28/20 09:00 12/03/20 08:22 0.8 MG Lab Laboratory Tests Test 12/03/20 07:40 Sodium Level 147 mmol/L (136-145) Potassium Level 3.6 mmol/L (3.5-5.1) Chloride Level 110 mmol/L (98-107) Carbon Dioxide Level 30 mmol/L (21-32) Anion Gap 7 (6-14) Blood Urea Nitrogen 34 mg/dL (8-26) Creatinine 2.1 mg/dL (0.7-1.3) Estimated GFR (Cockcroft-Gault) 37.0 Glucose Level 90 mg/dL (70-99) Calcium Level 8.3 mg/dL (8.5-10.1) Results All relevant outside records, renal labs, imaging studies, telemetry/EKG's were reviewed. Justicifation of Admission Dx: Justifications for Admission: Justification of Admission Dx: Yes DEB ANGELES MD Dec 03, 2020 09:08
--- NOTE | 2020-12-03 10:46 | SNU/HH DC ---
DISCHARGE ORDERS DISCHARGE INFORMATION: DISCHARGE DATE: Dec 03, 2020 FINAL DIAGNOSIS ESRD on Hemodialysis A/C SYSTOLIC CHF CONDITION ON DISCHARGE: Stable CODE STATUS: Code Status: Full LONG TERM: SNF STAY <30 DAYS: Yes POST DISCHARGE ORDERS: ACTIVITY ORDERS: Activity as tolerated WEIGHT BEARING STATUS: Full weight bearing DIET AFTER DISCHARGE: Renal CHECKS AFTER DISCHARGE: CHECKS AFTER DISCHARGE: Check blood press - daily, Check blood sugar, ac/hs, Weigh Yourself Daily COMMENTS: IJ/chest TREATMENT/EQUIPMENT ORDERS: ADAPTIVE EQUIPMENT NEEDED: Front wheeled walker RESPIRATORY EQUIPMENT NEEDED: Oxygen Physical Therapy For: Evalulation/Treatment Occupational Therapy For: Evaluation/Treatment DISCHARGE MEDICATIONS: Home Meds Active Scripts Hydrocodone Bit/Acetaminophen (HYDROCODONE-APAP 5-325 ) 1 Tab Tablet, 1 TAB PO PRN Q4HRS PRN for SEVERE PAIN, #15 TAB Prov:FRANCISCA MCLEAN MD 11/13/19 Amlodipine Besylate (AMLODIPINE BESYLATE) 10 Mg Tablet, 10 MG PO DAILY for htn, #60 TAB Prov:FRANCISCA MCLEAN MD 11/13/19 Albuterol Sulfate (Proair Hfa) 8.5 Gm Hfa.aer.ad, 2.5 MG NEB PRN Q4HRS PRN for SHORTNESS OF BREATH for 30 Days, INHALER Prov:FRANCISCA MCLEAN MD 11/13/19 Reported Medications Aspirin (Children's Aspirin) 81 Mg Tab.chew, 1 TAB PO DAILY for cardiac for 30 Days, #30 TAB 0 Refills 11/27/20 Ascorbic Acid (Vitamin C) 500 Mg Capsule, 500 MG PO DAILY for replacement, CAP 11/27/20 Furosemide (FUROSEMIDE) 40 Mg/4 Ml Solution, 100 MG PO DAILY for diuretic, ML 11/27/20 Carvedilol (COREG) 25 Mg Tablet, 3.125 MG PO BIDWMEALS for CARDIAC, TAB 11/27/20 Amiodarone Hcl (AMIODARONE HCL) 200 Mg Tablet, 1 TAB PO DAILY for heart, #90 TAB 1 Refill 11/08/20 Docusate Sodium (DOCUSATE SODIUM) 100 Mg Capsule, 1 CAP PO BID PRN for CONSTIPATION for 7 Days, #14 CAP 0 Refills 11/11/19 Ferrous Sulfate (FERROUS SULFATE) 325 Mg Tablet, 1 TAB PO DAILY for ANEMIA, #30 TAB 3 Refills 11/11/19 Cholecalciferol (Vitamin D3) (VITAMIN D) 10,000 Unit Capsule, 1 CAP PO DAILY for BONE HEALTH for 30 Days, #30 CAP 0 Refills 11/11/19 Cyanocobalamin (Vitamin B-12) (Vitamin B-12) 1,000 Mcg Capsule, 1 CAP PO DAILY for VIT DEFICIENCY for 30 Days, #30 CAP 0 Refills 11/11/19 Tamsulosin Hcl (FLOMAX) 0.4 Mg Cap.er.24h, 2 CAP PO DAILY for PROSTATE/URGENCY, #30 CAP 11 Refills 11/11/19 Potassium Chloride (POTASSIUM CHLORIDE ) 20 Meq Tablet.er, 20 MEQ PO DAILY for SUPPLEMENT, TAB.SR 11/11/19 Atorvastatin Calcium (ATORVASTATIN CALCIUM) 40 Mg Tablet, 1 TAB PO DAILY for CHO LESTEROL, #30 TAB 5 Refills 11/11/19 Isosorbide Dinitrate (ISORDIL) 40 Mg Tablet, 20 MG PO BID for ANGINA, TAB 11/11/19 Hydralazine Hcl (HYDRALAZINE HCL) 50 Mg Tablet, 2 TAB PO TID for HTN, #90 TAB 5 Refills 11/11/19 Furosemide (FUROSEMIDE) 40 Mg Tablet, 1 TAB PO DAILY for HEART FAILURE, #30 TAB 5 Refills 11/11/19 Lisinopril (LISINOPRIL) 40 Mg Tablet, 1 TAB PO DAILY for HTN, #30 TAB 5 Refills 11/11/19 Discontinued Reported Medications Apixaban (ELIQUIS) 5 Mg Tablet, 5 MG PO BID for AFIB/BLOOD THINNER, TAB 11/11/19 Carvedilol (CARVEDILOL) 25 Mg Tablet, 12.5 MG PO BIDWMEALS for CARDIAC, TAB 11/11/19 MYNOR CHOW MD Dec 03, 2020 10:46
--- NOTE | 2020-12-03 11:27 | NUR ---
SS assisting habitat conservation planner. SS reviewed pt chart and discussed with pt RN. Pt is currently on room air. COVID19 negative. Pt has dialysis chair time at [facility] [address] [facility] [place] [address] phone [phone] Wednesday, , and Wednesday at 1445. [facility]. Pt is from [facility], ; fax [phone]. Discharge orders received for return to [facility]. SS phoned and faxed discharge orders and updated clinical to [facility]. SS currently awaiting transportation time from [facility]. SS will continue to follow for discharge planning.
--- NOTE | 2020-12-03 12:38 | PDOC ---
NARINDER HARDY MARINE MAMMAL TRAINER 12/03/20 1238: CARDIO Progress Notes Date and Time Date of Service 12/03/2020 Time of Evaluation 1110 Subjective Subjective: No Chest Pain, No shortness of breath, No Palpitations Vitals Vitals Vital Signs Date Time Temp Pulse Resp B/P (MAP) Pulse Ox O2 Delivery O2 Flow Rate FiO2 12/03/20 08:22 55 152/77 12/03/20 07:36 Room Air 12/03/20 07:00 98.0 18 93 98.0 12/02/20 08:00 3.0 Weight Weight [ ] Input and Output Intake and Output Intake and Output 12/03/20 07:00 Intake Total 838 ml Output Total 1175 ml Balance -337 ml Intake Oral 838 ml Output Urine Total 1175 ml # Bowel Movements 1 Laboratory Labs Laboratory Tests Test 12/03/20 07:40 Sodium Level 147 mmol/L (136-145) Potassium Level 3.6 mmol/L (3.5-5.1) Chloride Level 110 mmol/L (98-107) Carbon Dioxide Level 30 mmol/L (21-32) Anion Gap 7 (6-14) Blood Urea Nitrogen 34 mg/dL (8-26) Creatinine 2.1 mg/dL (0.7-1.3) Estimated GFR (Cockcroft-Gault) 37.0 Glucose Level 90 mg/dL (70-99) Calcium Level 8.3 mg/dL (8.5-10.1) Review of Systems Constitutional: yes: weakness, alert, oriented Ears/Nose/Throat: Yes: no symptom reported Eyes: Yes: no symptom reported Pulmonary: Yes dyspnea Cardiovascular: Yes edema Gastrointestional: Yes: no symptom reported Genitourinary: Yes: no symptom reported Skin: Yes no symptom reported Psychiatric/Neurological: Yes: no symptom reported Physical Exam HEENT: Neck Supple W Full Motion Chest: Symmetric LUNGS: Other (diminished bases) Heart: RRR (v-paced ) Abdomen: Soft N/T Extremities: Other (3+ bilateral LE edema and scrotal edema ) Neurology: alert, oriented, follow commands, other Assessment Assessment 1. Acute on chronic respiratory failure; multifactorial with renal failure, CHF, and hypoalbuminemia. Improved 2. Acute on chronic systolic CHF: better compensated. 2. Mixed ischemic, non-ischemic CMP; Echo 11/03 with LVEF 25%. 3. CAD s/p PCI/REJI to OM1 (04/2014). clinically stable, chest pain free 4. Type B aortic dissection; s/p transcatheter endovascular aneurysm repair 11/24/19 at [facility] 5. PAFIB: SR 6. SSS s/p leadless PPM (micra); intermittent pacing 7. Hypertension; controlled 8. Hyperlipidemia; statin 9. JOSE on CKD, hyperkalemia; HD initiated 10. Diabetes, II: Per IM 11. Leukopenia 12. Hypothyroidism 13. Hypokalemia; replaced. 14. Protein calorie malnutrition, anasarca, significant scrotal edema 15. Anemia of chronic disease Recommendations Fluid off loading per HD Eliquis for stroke prevention. Continue amiodarone for rhythm maintenance Continue coreg for HF optimization. Unable to place on ACEi/ARB currently due to recent JOSE. Will reeval as an outpt. Meantime hydralazine/nitrates per GDMT Secondary prevention; ASA/statin therapy Follow up in office as scheduled Anticipate rehab Will consider AICD as an outpt Justicifation of Admission Dx: Justifications for Admission: Justification of Admission Dx: Yes HERVE MARSH MD 12/03/20 1636: NARINDER HARDY APRN Dec 03, 2020 12:38 HERVE MARSH MD Dec 03, 2020 16:36
[2020-12-03] MEDS ORDERED: AMIODARONE HCL 200 MG TABLET. PO SCH (13:30)
[2020-12-03 14:23] VITALS: BP 138/68
--- NOTE | 2020-12-03 15:37 | NUR ---
Discharge Note: AGATA RYDER NEWTON Discharge instructions and discharge home medications reviewed with Other facility and a copy given. All questions have been answered and understanding verbalized. Patient discharged to [facility] with mid assist transportation via wheelchair. Report given to Bobby at [facility] at this time, advised we pulled the dailey at 1430 and pt still has yet to urinate; but does not feel the need to urinate at this time. Advised to call if any other questions arise. IV out, dailey out, monitor off.
[2020-12-03] MEDS ORDERED: hydrALAZINE 25 MG TABLET PO SCH (21:00)
--- NOTE | 2020-12-09 10:13 | DS ---
DATE OF DISCHARGE: 12/03/2020 HOSPITAL COURSE: The patient is a 80-year-old -[place] male patient, who presented to the Emergency Room of [facility] with a complaint of shortness of breath, weakness, fever, and cough. He is a resident at [facility] and stated that he moved recently from [place] in [place] and he used to live with his son and ex- and [facility]. His shortness of breath has been worsening over the last couple of days. He denied any chest pain or chest pressure. Does have a cough that is nonproductive, was hypoxic on room air. He is not normally on any oxygen. Unfortunately, he continued to smoke. He has had a previous admission to [facility] for congestive heart failure and accelerated hypertension. In the Emergency Room, he was extensively investigated and he was found to have acute on chronic kidney failure. His serum creatinine was up to 3.3. He has also marked hypernatremia. His liver enzymes are all elevated. His first troponin was slightly elevated also at 0.78 and his beta natriuretic peptide was 35,000. He has normochromic normocytic anemia. His D-dimer was elevated at 2.5 and urinalysis was essentially unremarkable. His influenza A and B were negative. His chest x-ray showed the heart is enlarged. A metallic stent to the thoracic aorta is seen, but there was no pleural effusion or pneumothorax and he was transferred to [facility] with acute hypoxic respiratory failure, acute on chronic diastolic congestive heart failure, slightly elevated troponin and acute on chronic kidney failure, type 2 diabetes mellitus, atypical pneumonia, and normochromic normocytic anemia. He was swabbed for novel coronavirus and was transferred to [facility] where he was evaluated by the Cardiology team as well as the tar roofer and the sports physiologist because he also complained of fresh blood per rectum, transpired that he has also hemorrhoids, but no further investigation was recommended by the Gastroenterology team. We did stop his apixaban at one point in time. The patient was started on IV fluid and his creatinine has slightly improved and a decision was made to discharge him to [facility] to continue the process of rehabilitation. PHYSICAL EXAMINATION: GENERAL: On the day of discharge, he looked pale, but no jaundice, cyanosis or thyromegaly. No jugular venous distention, but marked generalized anasarca. VITAL SIGNS: His heart rate was 42, blood pressure was 93/56, temperature was 96.3, respiratory rate was 14 and oxygen saturation was 98% on room air. HEAD, EYES, EARS, NOSE AND THROAT: Showed normocephalic, atraumatic. NECK: Supple. HEART: Showed normal first and second heart sounds. No gallop or murmur. CHEST: Clear to auscultation. No crepitation or rhonchi. ABDOMEN: Distended, soft, nontender. NEUROLOGIC: He was grossly intact. His intake was 1980, output was 400. LABORATORY DATA: His lab work on the day of discharge showed a serum sodium 144, potassium 4.1, chloride 113, bicarbonate 24, anion gap of 7, BUN 59, creatinine 3.1, estimated GFR was 23 mL per minute. His glucose 131, calcium was 8.8. Total bilirubin, AST, ALT were normal. Alkaline phosphatase was slightly elevated. Total protein was 5.3, albumin was 2.5. His white cell count was 2400; hemoglobin 10; hematocrit 32; MCV 96; and platelet count of 156,000. Urinalysis was unremarkable. DISCHARGE MEDICATIONS: He was discharged to [facility] to continue on albuterol sulfate by nebulizer every 4 hours, amiodarone 200 mg once a day, amlodipine besylate 10 mg once a day, atorvastatin 40 mg at bedtime, cholecalciferol vitamin D3 of 10,000 units once a day, cyanocobalamin 1000 mcg once a day, docusate sodium 100 mg twice a day, ferrous sulfate 325 mg daily, furosemide 40 mg daily, hydralazine 100 mg 2 times a day, hydrocodone/APAP 5/325 one tablet every 4 hours. He was discharged also on isosorbide mononitrate 20 mg twice a day, lisinopril 40 mg daily, potassium chloride 20 mEq once a day and tamsulosin 0.8 mg at bedtime. FINAL DISCHARGE DIAGNOSES: 1. Acute on chronic kidney injury. Creatinine is trending down from 3.4-2.8. Ultrasound showed both kidneys are small with no evidence of hydronephrosis consistent with medical renal disease. No evidence of obstruction. 2. Chronic kidney disease stage 3. Baseline creatinine is 1.8. 3. Hypernatremia, resolved. 4. Acute on chronic diastolic congestive heart failure. Echocardiogram showed the patient has an ejection fraction of only 25%. 5. The patient has an infrarenal aortic aneurysm. 6. Acute hypoxic respiratory failure, improving. MYNOR CHOW MD DR: TOMY/edil JOB#: [id number] / [id number]
[2020-12-23] MEDS ORDERED: APIX5TAB PO (07:35)
--- NOTE | 2020-12-23 14:03 | DS ---
DATE OF DISCHARGE: 12/03/2020 HOSPITAL COURSE: The patient is a 80-year-old -[place] male patient who was at [facility] and was discharged from [facility] with marked bilateral lower extremity edema that has been worsening as well as scrotal edema and generalized anasarca. He is known to have chronic systolic congestive heart failure as well as chronic kidney disease, likely due to hypertensive nephrosclerosis as well as cardiorenal syndrome. The patient was admitted to [facility] for gross hematuria and Miguel catheter was successfully placed; however, his creatinine continued to steadily rise and therefore, a decision was made to transfer him to [facility] where he was evaluated by the Nephrology team and the patient has had a tunneled hemodialysis catheter and was started on hemodialysis. PHYSICAL EXAMINATION: GENERAL: When I saw him on the day of discharge, he looked well and was clearly in no apparent respiratory distress. He was pale, but no jaundice, cyanosis or thyromegaly. No jugular venous distention, but generalized anasarca. VITAL SIGNS: His heart rate was 55, blood pressure was 152/77, temperature was 98, respiratory rate was 18 and oxygen saturation was 93% on room air. HEAD, EYES, EARS, NOSE AND THROAT: Showed normocephalic, atraumatic. NECK: Supple. HEART: Normal first and second heart sounds. No gallop, rub or murmur. CHEST: Clear to auscultation. No crepitation or rhonchi. ABDOMEN: Distended, soft, nontender. NEUROLOGIC: He was awake, alert, responding appropriately. All cranial nerves are intact. He moves extremities without difficulty. He ambulates with a walker. His intake was 1900, output was 1300. LABORATORY DATA: His most recent hemoglobin was 8.4, hematocrit 25 and his chemistry is variable showed a serum sodium 147, potassium 3.6, chloride 110, bicarbonate 30, anion gap of 7, BUN 34, creatinine 2.1 and estimated GFR was 37 mL per minute. His glucose was 90 and calcium was 8.3. DISCHARGE MEDICATIONS: He was discharged back to [facility] to continue on albuterol sulfate 2.5 mg by nebulizer every 4 hours, aspirin enteric coated 81 mg once a day, carvedilol 3.125 mg twice a day, Colace 100 mg twice a day, ferrous sulfate 325 mg daily and hydrocodone/APAP 5/325 one tablet every 4 hours. He is on amiodarone 200 mg once a day, atorvastatin calcium 40 mg at bedtime, furosemide 40 mg daily, hydralazine 50 mg 3 times a day and tamsulosin for Flomax 0.4 mg capsule once a day. FINAL DISCHARGE DIAGNOSES: 1. End-stage renal disease, on hemodialysis via tunneled hemodialysis catheter on Wednesday, Wednesday and Wednesday. The patient will be dialyzing at [facility] in [facility]. 2. [id number] systolic congestive heart failure with an ejection fraction of 25%. 3. Ischemic cardiomyopathy. 4. Chronic atrial fibrillation, rate controlled, well anticoagulated on apixaban. 5. The patient has coronary artery disease, status post percutaneous coronary intervention with stent deployment. 6. Hypertension. 7. Hyperlipidemia. 8. Chronic obstructive pulmonary disease. 9. Anemia of chronic kidney disease. 10. Type 2 diabetes mellitus. 11. The patient has sick sinus syndrome, for which he has a leadless pacemaker. 12. Generalized anasarca and marked hypoalbuminemia. We did a 24-hour urine collection to quantify the proteinuria, the result of which is still pending at the time of this dictation. MYNOR CHOW MD DR: TOMY/edil JOB#: [id number] / [id number]
== END 2020-12-03 15:32 | DRG 673 ==
LOC: 2 NORTH 13:44
PROVIDERS: ADMIT Internal Medicine; ATTEND Internal Medicine
PROC: 0JH63XZ Insertion of Tunneled Vascular Access Device into Chest Subcutaneous Tissue and Fascia, Percutaneous Approach (ICD-10-PCS; principal; 2020-11-29)
PROC: 02H633Z Insertion of Infusion Device into Right Atrium, Percutaneous Approach (ICD-10-PCS; 2020-11-29)
PROC: B5181ZA Fluoroscopy of Superior Vena Cava using Low Osmolar Contrast, Guidance (ICD-10-PCS; 2020-11-29)
PROC: B548ZZA Ultrasonography of Superior Vena Cava, Guidance (ICD-10-PCS; 2020-11-29)
PROC: 5A1D70Z Performance of Urinary Filtration, Intermittent, Less than 6 Hours Per Day (ICD-10-PCS; 2020-11-29)
PROC: 5A1D70Z Performance of Urinary Filtration, Intermittent, Less than 6 Hours Per Day (ICD-10-PCS; 2020-11-30)
PROC: 5A1D70Z Performance of Urinary Filtration, Intermittent, Less than 6 Hours Per Day (ICD-10-PCS; 2020-12-03)
DX: N17.9 Acute kidney failure, unspecified (principal); I50.43 Acute on chronic combined systolic (congestive) and diastolic (congestive) heart failure; J96.21 Acute and chronic respiratory failure with hypoxia; D61.818 Other pancytopenia; E46 Unspecified protein-calorie malnutrition; I13.2 Hypertensive heart and chronic kidney disease with heart failure and with stage 5 chronic kidney disease, or end stage renal disease; I42.8 Other cardiomyopathies; I48.20 Chronic atrial fibrillation, unspecified; Z20.822 Contact with and (suspected) exposure to COVID-19; D63.1 Anemia in chronic kidney disease; E03.9 Hypothyroidism, unspecified; E11.22 Type 2 diabetes mellitus with diabetic chronic kidney disease; E78.5 Hyperlipidemia, unspecified; E87.6 Hypokalemia; I08.3 Combined rheumatic disorders of mitral, aortic and tricuspid valves; I25.10 Atherosclerotic heart disease of native coronary artery without angina pectoris; I25.2 Old myocardial infarction; I25.5 Ischemic cardiomyopathy; I48.0 Paroxysmal atrial fibrillation; I49.5 Sick sinus syndrome; J44.9 Chronic obstructive pulmonary disease, unspecified; N04.9 Nephrotic syndrome with unspecified morphologic changes; N18.6 End stage renal disease; N40.0 Benign prostatic hyperplasia without lower urinary tract symptoms; N43.3 Hydrocele, unspecified; Z79.01 Long term (current) use of anticoagulants; Z82.49 Family history of ischemic heart disease and other diseases of the circulatory system; Z82.5 Family history of asthma and other chronic lower respiratory diseases; Z87.891 Personal history of nicotine dependence; Z95.5 Presence of coronary angioplasty implant and graft; Z98.41 Cataract extraction status, right eye; Z98.42 Cataract extraction status, left eye; Z99.2 Dependence on renal dialysis; Z68.26 Body mass index [BMI] 26.0-26.9, adult
CPT/HCPCS: 36415; 36558; 71045; 76870; 76937; 77001; 80048; 80053; 82570; 83540; 83550; 83735; 84100; 84156; 84436; 84439; 84480; 85007; 85014; 85018; 85025; 85027; 85610; 86704; 86706; 87340; 87426; 93970; 94760; 99152; C1750; C1769; C1892; J0690; J0882; J2250; J2260; J3010; J3490; P9046; U0003; 97110-GP; 97530-GO; 97530-GP; 97535-GO; G0378